=== PATIENT | female | born 1985 | race Caucasian/White ===

== ENCOUNTER 2017-06-08 18:01 | Emergency (ER) | payer OTHER, SELFPAY ==
[2017-06-08 18:03] VITALS: BP 132/68; PULSE 76; RESP 16; TEMP 36.3; O2SAT 99; BMI 29.7
--- NOTE | 2017-06-08 18:14 | ED.VISSUMM ---
- ER Visit Summary Date of Service: 06/08/17 Chief Complaint: Headache History of Present Illness: The patient is a 31 F presents to the emergency department with headache. Patient is a history of migraine. States normally, it is well controlled with Imitrex. Her headache started 4 days ago. She states it was gradual in onset. She describes a pressure on the left side. She does describe photophobia. She has tried her Imitrex with no improvement. She has been nauseated without vomiting. She denies trauma. She denies any recent illness. Physical Examination: Well-appearing patient is in no acute distress. Head is normocephalic, atraumatic. Pupils equal round reactive, extraocular muscles intact. There is no temporal artery tenderness. There is no vesicular rash. Neck supple. Kernig's and Brudzinski's are negative. Heart regular rate and rhythm. Lungs clear, chest nontender. Abdomen soft, nontender, nondistended. Neuro exam displays no focal or lateralizing deficit. 2+ symmetric lower extremity reflexes. No clonus. No ataxia or gait abnormality. Test Results: [] Emergency Department Course and Treatment: The patient presents with her normal migraine. She is not encephalopathic. She is not meningitic. She has a normal neurologic examination. The patient was treated symptomatically with IV fluids, Benadryl, Compazine, and Toradol. Within 30 minutes her headache is almost completely resolved. Her reexamination is within normal limits. At this time, I do feel the patient is safe for outpatient therapy. I will refill her Imitrex. She declined any antiemetics. She will be discharged home, return with any worsening symptoms. Treatment Plan: [] Disposition: Discharge Impression: 1. Migraine headache This note was generated with [employer] dictation software. It may contain incorrect words, spelling, and punctuation that were not noted in review of the chart prior to signing ED Disposition - Plan for ED Patient: Chief Complaint: Headache Instructions: ED Headache Migraine Prescriptions: Sumatriptan [Imitrex] 6 mg SC .X1 PRN PRN #10 vial PRN Reason: Migraine Symptoms Referrals: Alida Montgomery MD [Primary Care Provider] -
[2017-06-08] MEDS: 0.9% Normal Saline 1,000 ML 999 ML IV (18:19)
[2017-06-08] MEDS: DiphenhydrAMINE 50 MG/ML Syringe IV (18:20)
[2017-06-08] MEDS: proCHLORPERazine 10 MG/2 ML Vial IV (18:20)
[2017-06-08] MEDS: Ketorolac 30 MG/ML Syringe IV (18:20)
[2017-06-08 19:11] VITALS: BP 121/77; PULSE 68; RESP 14; O2SAT 100
== END 2017-06-08 19:12 | disposition home or self-care (01) ==
LOC: ED 18:30
PROVIDERS: Emergency Provider Emergency Medicine; Family Provider Internal Medicine; PCP Internal Medicine
DX: G43.909 Migraine, unspecified, not intractable, without status migrainosus (principal)
CPT/HCPCS: 96361; 96374; 96375; 99283; J7030; A4216

== ENCOUNTER 2024-08-17 09:33 | Emergency (ER) | payer OTHER, SELFPAY ==
[2024-08-17 09:34] VITALS: BP 148/62; PULSE 72; RESP 14; TEMP 36.3; O2SAT 98
--- NOTE | 2024-08-17 10:25 | ED.VIS.FEGU ---
HPI HPI - Female History of Present Illness Chief Complaint: Vag Bleeding Informant: patient Pain Pain: Positive for Pelvic Pain Onset: Days Context: Gradual Onset Timing: Intermittent Quality: Positive for Cramping Current Severity: Mild Maximum Severity: Mild Bleeding Issue: Positive for Vaginal bleeding and Passing clots Onset: Days Context: Gradual Onset Timing: Intermittent Current Severity: Heavy Associated Symptoms Associated Symptoms: Negative for Dysuria or Frequency P: 2 Ab: 0 Narrative Narrative: 38-year-old female history of an IUD for 2 and half years. Has been having intermittent heavy vaginal bleeding since Monday. Intermittent cramping. No discharge. No dysuria. Patient is G2, P2 Ab0. No prior gynecological surgery. Typically does not have bleeding anything like this. Had what she considers a normal menstrual period about 2 weeks ago. Blood mildly for 2 days. No fever. [facility] Medical History (Updated 08/17/24 @ 13:[address] Zaheer Ohara MD) Psoriasis Medical History no medical history no medical history Home Medications ?Medication ?Instructions ?Recorded ?Last Taken ?Type albuterol sulfate 90 mcg/actuation 2 puff inhalation Q4H PRN 08/17/24 Unknown History aerosol inhaler shortness of breath or wheezing apremilast 30 mg tablet (Otezla) 30 mg PO QHS 08/17/24 08/16/24 History Allergy/AdvReac Type Severity Reaction Status Date / Time amoxicillin Allergy Hives Verified 08/17/24 09:35 Family History no significant family his Surgical History no surgical history Social History Smoking Status: Never smoker ROS ROS ED ROS Narrative Denies recent illness. Vaginal bleeding. Pelvic cramping. Constitutional Constitutional ED: Denies chills or fever(s) Eyes Eyes: Denies blurry vision ENT ENT ED: Denies ear pain Cardiovascular Cardiovascular: Denies chest pain Respiratory/Chest Respiratory/Chest: Denies cough or dyspnea Gastrointestinal Gastrointestinal: Denies abdominal pain Genitourinary Genitourinary ED: Denies dysuria or hematuria Musculoskeletal Musculoskeletal: Denies arthralgias Integumentary Denies abscess Neurologic Neurologic: Denies headache(s) Psychiatric Psychiatric: Denies anxiety Endocrine Endocrinology: Denies heat intolerance Hematologic/Lymphatic Hematologic/Lymphatic: Denies easy bleeding, easy bruising or lymphadenopathy Allergic/Immunologic Allergic/Immunologic ED: Denies mouth swelling, tongue swelling or urticaria EXAM Physical Exam Narrative Exam Narrative: 38 Fama sitting upright in bed. Vital signs are stable afebrile. Blood pressure 148/62. Heart rate 72. No distress. H EENT exam pupils round reactive light. Extra motions are intact. Moist mucous membranes. Lungs clear to auscultation bilaterally. Heart regular rhythm rate about 70 no murmur. Chest wall and ribs nontender. Abdomen soft nondistended normal bowel sounds without peritoneal signs. Very mild suprapubic tenderness. Back nontender. Moving all 4 extremities. Nontender. No edema. Normal strength and range of motion. Neurologically awake and alert. Answer questions following commands. No focal motor deficits. Benign exam. Const Vital Signs: 08/17/24 09:34 08/17/24 11:34 08/17/24 12:59 Temperature 97.3 F L Temperature Source Temporal Pulse Rate 72 55 L 51 L Respiratory Rate 14 Blood Pressure 148/62 H 102/74 111/71 Blood Pressure Mean 90 83 84 Pulse Ox 98 93 100 Oxygen Delivery Method Room Air Room Air Room Air Positive well nourished and well developed; Negative for cachectic, contractures or unkempt General Appearance ED: well developed and NAD; Negative for unkempt, cachectic, contractures or pallor Nutritional Appearance: Negative for cachectic HEENT Reports moist mucous membranes Eyes PERRL and EOMs intact bilaterally General Eye ED: Negative for pale conjunctiva or scleral icterus Neck no lymphadenopathy, supple and no JVD Chest Wall inspection of chest normal and palpation of chest normal Resp normal respiratory effort and clear to auscultation bilaterally Auscultation: Negative for rales, rhonchi, wheezes or diminished lung sounds Cardio regular rate, regular rhythm, S1 normal heart sound, no murmurs and no JVD GI normal to inspection, nondistended, normoactive bowel sounds, soft to palpation, non-tender, non-distended and no masses Auscultation: normoactive bowel sounds Palpation: Negative for tender, guarding, rigid, hepatomegaly, splenomegaly or mass Back/Spine no CVA tenderness General Back: Negative for CVA tenderness Cervical Spine: Negative for cervical spine tenderness Thoracic Spine / Upper Back: Negative for thoracic spinal tenderness Lumbar Spine / Lower Back: Negative for lumbar spinal tenderness Sacrum: Negative for other Extremity normal to inspection and full ROM General Extremety ED: Negative for edema or tenderness General Extremity: Negative for edema Neuro oriented x3 and CN's II-XII intact bilaterally Sensorium / Orientation: alert, oriented to person, oriented to place and oriented to time; Negative for confused, lethargic or stuporous Motor Exam: strength 5/5 throughout; Negative for general weakness or strength abnormal Psych mental status grossly normal Appearance: Negative for unkempt Attitude: No agitated Speech: No other Mood & Affect: Negative for depressed, anxious or tearful Skin no rashes or lesions noted and no wounds General Skin Exam: Negative for jaundice or pallor Rashes: No rashes noted Trauma: Negative for other MDM MDM MDM Narrative Medical decision making narrative: 38-year-old female with heavy menstrual bleeding this week. Screening labs including test and a blood count. She did not want a thing for pain. She will be given a liter of normal saline to replace some of her volume loss. Repeat exam at 1:16 PM patient doing well. Went over her labs. She will be discharged home she has a follow-up appointment with her [facility] [facility] [facility] on Monday. Fluids and rest. Tylenol Motrin. Return if bleeding a lot worse otherwise follow-up with her OB. History & Record Review Discussion w/independent historian: Patient and Family Additional record(s) reviewed:: Prior inpatient record, Prior outpatient record, Prior ED visit and Prior labs Lab Data Attestation: I reviewed the patient's lab results. Lab results narrative: Electrolytes are unremarkable. Gap of 12. Normal BUN of 12 creatinine 0.67. Serum test negative. CBC shows a white count of 7. H&H 13.9 and 40.4 which actually better than her normal hemoglobin. Platelets of 301. Labs: Laboratory Results - last 24 hr 08/17/24 11:15 WBC 7.9 RBC 4.76 Hgb 13.9 Hct 40.4 MCV 84.9 MCH 29.2 MCHC 34.4 RDW Std Deviation 36.9 RDW Coeff of Manas 12.1 Plt Count 301 MPV 9.4 Immature Gran % (Auto) 0.400 Neut % (Auto) 55.2 Lymph % (Auto) 36.8 Pepin % (Auto) 6.1 Eos % (Auto) 1.0 Baso % (Auto) 0.5 Absolute Neuts (auto) 4.4 Absolute Lymphs (auto) 2.90 Nucleated RBC % 0 Sodium 138 Potassium 3.9 Chloride 107 Carbon Dioxide 18.2 L Anion Gap 12 BUN 12 Creatinine 0.67 L Est GFR (MDRD) Non-Af 114 BUN/Creatinine Ratio 18.0 Glucose 96 Calcium 9.0 Serum , Qual NEGATIVE Discharge Plan Triage Chief Complaint: Vag Bleeding ED Provider: Zaheer Ohara Dx/Rx/DC Orders Clinical Impression: Abnormal vaginal bleeding, History of use of contraceptive intrauterine device (IUD) Instructions: ED Dysfunctional Uterine Bleeding Prescriptions: No Action Otezla 30 mg tablet 30 mg PO QHS albuterol sulfate 90 mcg/actuation HFA aerosol inhaler 2 puff INHALATION Q4H PRN (Reason: shortness of breath or wheezing) Primary Care Provider: Alida Montgomery Referrals: Alida Montgomery MD [Primary Care Provider] - Activity Restrictions/Additional Instructions: Follow-up with your [employer] appointment on Monday. Plenty of fluids to replace the blood you are losing. Motrin and Tylenol for pain. Return if much heavier bleeding or you are feeling worse. Currently your blood counts look good. Print Language: Estonian Disposition Disposition: Home, Self Care
--- OUTSIDE RECORDS SUMMARY | 2024-08-17 10:45 | XMS RPT_ITS | CCD ---
Author Organization [facility] CliniSymn Care Team Providers Care Golf Caddie Name Role Phone Ulises, Ana Maria Unavailable Unavailable Bhaskar Pastor Unavailable Unavailable GANTA, ANA MARIA LORENA Referring Unavailable KARENARTUR Primary Care Unavailable KARENARTUR Attending Unavailable KAREN, ARTUR Benz Admitting Unavailable GANTA, ANA MARIA LORENA Consulting Unavailable PROVIDER, UNKNOWN Consulting Unavailable KAREN, ARTUR Benz Admitting Unavailable KAREN, ARTUR Benz Primary Care Unavailable KAREN, ARTUR Benz Attending Unavailable GANTA, ANA MARIA LORENA Consulting Unavailable PROVIDER, UNKNOWN Consulting Unavailable KAREN, ARTUR Benz Primary Care Unavailable KARENARTUR Attending Unavailable KAREN, ARTUR Demar Admitting Unavailable GANTA, ANA MARIA LORENA Consulting Unavailable PROVIDER, UNKNOWN Consulting Unavailable Ana Maria Marrero MD Primary Care Provider Ana Maria Marrero MD Primary Care Provider Ana Maria Marrero MD Primary Care Provider Ana Maria Marrero MD Primary Care Provider Marii OPWELL-C Miriam L Unavailable Older CONTROL MANAGER.CLINICAL BIOCHEMICAL GENETICIST, Mandi Unavailable Ihsan PA-C, Kera Unavailable Denbow PA-C, Miriam L Unavailable Bogmichelle PA-C Kera Unavailable GANTA, ANA MARIA Primary Care Unavailable OLDER, MANDI Attending Unavailable GANTA, ANA MARIA Primary Care Unavailable GANTA, ANA MARIA Primary Care Unavailable HILL, MARY ANN Referring Unavailable GANTA, ANA MARIA Primary Care Unavailable HILL, MARY ANN Attending Unavailable GANTA, ANA MARIA Primary Care Unavailable ESTRADA BALLARD Referring Unavailable HILL, MARY ANN Attending Unavailable GANTA, ANA MARIA Primary Care Unavailable ANA MARIA MARRERO Primary Care Unavailable ANA MARIA MARRERO Primary Care Unavailable ESTRADA BALLARD Attending Unavailable Allergies Allergy Classification Reported Allergen(s) Allergy Type Date of Onset Reaction(s) Facility (2 sources) amoxicillin; Translations: [AMOXICILLIN] Drug Allergy 5 AOF [facility] Repository (1 source) Amoxicillin Drug Allergy [facility] Repository (20 sources) Amoxicillin Drug Allergy 5 Hives, Swelling [facility] Work Phone: (20 sources) benzonatate; Translations: [BENZONATATE] Drug Allergy 5 Vomiting [facility] Work Phone: Medications Current Medications Medication Drug Class(es) Dates Sig (Normalized) Sig (Original) [id number] 200 actuat albuterol 0.09 mg/actuat metered dose inhaler (11 sources) beta2-Adrenergic Agonist Start: 04-22-2024 take 2 puff(s) by inhalation every four hours as needed for wheezing albuterol HFA (PROVENTIL HFA, VENTOLIN HFA) 90 mcg/actuation inhaler Inhale 2 Puffs as instructed every 4 hours as needed for wheezing/shortnes s of breath. 18 g 04/22/2024 Active Start: 05-15-2019 End: 05-06-2022 take 2 puff(s) by inhalation every six hours as needed albuterol HFA (PROAIR HFA) 90 mcg/actuation inhaler Inhale 2 Puffs as instructed every 6 hours as needed. 1 Inhaler 0 05/15/2019 05/06/2022 Discontinued Comment on above: Inhale 2 Puffs as in structed every 6 hours as needed. apremilast 30 mg oral tablet (11 sources) Start: 4 take 1 tablet by mouth twice daily OTEZLA 30 mg tablet Take 30 mg by mouth two times a day. 10/20/2023 Active benzonatate 100 mg oral capsule (8 sources) Non-narcotic Antitussive Start: 5 take 2 capsules by mouth every eight hours as needed benzonatate (TESSALON PERLE) 100 mg capsule Take 2 capsules by mouth three times a day as needed. 30 capsule 04/22/2024 Active Start: 03-08-2024 End: 04-17-2024 take 1 capsule by mouth every eight hours as needed benzonatate (TESSALON PERLE) 100 mg capsule Take 1 capsule by mouth three times a day as needed. 15 capsule 03/08/2024 04/17/2024 Discontinued doxycycline hyclate 100 mg oral capsule (2 sources) Tetracycline-class Drug Start: 03-08-2024 End: 03-18-2024 take 1 capsule by mouth twice daily doxycycline hyclate (VIBRAMYCIN) 100 mg capsule Take 1 capsule (100 mg) by mouth two times a day for 10 days. 20 capsule 03/08/2024 03/18/2024 Active Start: 12-09-2022 End: 12-16-2022 take 1 tablet by mouth twice daily doxycycline (VIBRA-TABS) 100 mg tablet Indications: Sinobronchitis Take 1 tablet by mouth two times a day for 7 days. 14 tablet 0 12/09/2022 12/16/2022 Active Comment on above: Take 1 tablet by chalino two times a day for 7 days. levonorgestrel 0.130492 mg/hr intrauterine system (20 sources) Progestin, Progestin-containing Intrauterine Device Start: 023 End: levonorgestrel (MIRENA) 20 mcg/24 hours (8 yrs) 52 mg IUD 1 Each by INTRAUTERINE route as directed. 1 Each 03/28/2022 03/27/2027 Active Comment on above: 1 Each by INTRAUTERI NE route as directed. Magnesium (4 sources) take 350 mg by mouth once daily MAGNESIUM ORAL Take 350 mg by mouth once daily. Active Multivitamin capsule (16 sources) take 1 capsule by mouth once daily Multivitamin capsule Take 1 capsule by mouth once daily. Migraine 0 Active Comment on above: Take 1 capsule by mo [facility] once daily. Migraine MULTIVITAMIN ORAL (11 sources) take 1 capsule by mouth once daily MULTIVITAMIN ORAL Take 1 capsule by mouth once daily. powder Active oseltamivir 75 mg oral capsule (1 source) Neuraminidase Inhibitor Start: 024 End: 024 take 1 capsule by mouth twice daily oseltamivir (TAMIFLU) 75 mg capsule Take 1 capsule by mouth two times a day for 5 days. 10 capsule 02/27/2024 03/03/2024 Active predniSONE 20 mg oral tablet (4 sources) Start: End: take 2 tablets by mouth once daily predniSONE (DELTASONE) 20 mg tablet Take 2 tablets by mouth once daily for 5 days. 10 tablet 04/22/2024 04/27/2024 Active Start: 03-08-2024 End: 04-17-2024 take 1 tablet by mouth once daily predniSONE (DELTASONE) 20 mg tablet Take 1 tablet by mouth once daily. 5 tablet 03/08/2024 04/17/2024 Discontinued Start: 12-09-2022 End: 12-14-2022 take 2 tablets by mouth once daily predniSONE (DELTASONE) 20 mg tablet Indications: Sinobronchitis Take 2 tablets by mouth once daily for 5 days. 10 tablet 0 12/09/2022 12/14/2022 Active Comment on above: Take 2 tablets by [facility] once daily for 5 days. 0.5 ml SUMAtriptan 12 mg/ml cartridge (20 sources) Serotonin-1b and Serotonin-1d Receptor Agonist Start: 01-01-20 End: 06-29-19 SUMAtriptan (IMITREX) 6 mg/0.5 mL kit Indications: Intractable headache, unspecified chronicity pattern, unspecified headache type Inject 0.5 mL subcutaneously as needed. 6 Each 06/28/2022 Active Comment on above: Inject 0.5 mL subcut aneously as needed. valACYclovir 1000 mg oral tablet (1 source) Herpesvirus Nucleoside Analog DNA Polymerase Inhibitor, Herpes Simplex Virus Nucleoside Analog DNA Polymerase Inhibitor, Herpes Zoster Virus Nucleoside Analog DNA Polymerase Inhibitor Start: 09-23-19 End: 09-30-19 take 1 tablet by mouth three times daily valACYclovir (VALTREX) 1 gram Indications: Herpes zoster with complication Take 1 tablet by mouth three times daily for 7 days. 21 tablet 0 09/22/2022 09/29/2022 Active Comment on above: Take 1 tablet by [facility] three times daily for 7 days. vitamin A/vitamin D3 (NATURAL VITAMIN D ORAL) (4 sources) vitamin A/vitami n D3 (NATURAL VITAMIN D ORAL) Take by mouth. Vitmain D Active zinc sulfate 220 mg oral capsule (11 sources) Start: 10-20-19 take 1 capsule by mouth once daily zinc sulfate (ZINC-220) 220 mg (50 mg zinc) capsule Take 220 mg by mouth once daily. 10/20/2023 Active Completed/Discontinued Medications Medication Drug Class(es) Dates Sig (Normalized) Sig (Original) azithromycin 250 mg oral tablet (2 sources) Macrolide Antimicrobial Start: 12-05-2022 End: 12-09-2022 azithromycin (ZITHROMAX Z-LENARD) 250 mg tablet Indications: Acute non-recurrent sinusitis, unspecified location , Left otitis media, unspecified otitis media type Take 2 tablets day one, then, 1 tablet daily until gone. 6 tablet 0 12/05/2022 12/09/2022 Discontinued Comment on above: Take 2 tablets day o ne, then, 1 tablet daily until gone. topiramate 25 mg oral tablet (13 sources) Start: 06-28-2022 End: 01-23-2024 take 1 tablet by mouth twice daily, then take 2 tablets by mouth once daily topiramate (TOPAMAX) 25 mg tablet Indications: Chronic migraine without aura, with intractable migraine, so stated, with status migrainosus Take 1 tablet by mouth twice daily. For a couple weeks, followed by 2 pills every day 60 tablet 2 06/28/2022 01/23/2024 Discontinued Comment on above: Take 1 tablet by chalino th twice daily. For a couple weeks, followed by 2 pills every day Problems Active Problems Problem Classification Problem Date Documented Date Episodic/Chronic Blindness and vision defects (1 source) Eye / vision finding; Translations: [Unspecified visual disturbance] Episodic Contraceptive and procreative management (1 source) Intrauterine contraceptive device in situ; Translations: [Encounter for routine checking of intrauterine contraceptive device] Episodic Disorders of lipid metabolism (14 sources) Dyslipidemia; Translations: [Hyperlipidemia, unspecified] Onset: 01-23-2024 01-23-2024 Chronic Esophageal disorders (20 sources) Gastroesophageal reflux disease; Translations: [Gastro-esophageal reflux disease without esophagitis] Onset: 08-06-2014 08-06-2014 Chronic Headache; including migraine (20 sources) Migraine without aura; Translations: [Migraine without aura, not intractable, without status migrainosus] Onset: 05-20-2014 05-20-2014 Chronic Headache; including migraine (1 source) Headache; including migraine; Translations: [Headache, unspecified] Onset: 02-25-2020 Influenza (1 source) Influenza due to Influenza A virus; Translations: [Influenza due to other identified influenza virus with other respiratory manifestations] 02-27-2024 Episodic Malaise and fatigue (1 source) Other fatigue; Translations: [Other fatigue] Onset: 02-25-2020 Episodic Menopausal disorders (20 sources) Menorrhagia; Translations: [Excessive bleeding in the premenopausal period] Onset: 06-07-2021 06-07-2021 Chronic Mood disorders (20 sources) Depressive disorder; Translations: [Depression] Onset: 01-21-2005 Resolved: 01-13-2012 11-16-2015 Chronic Other ear and sense organ disorders (1 source) Otalgia, right ear; Translations: [Otalgia, unspecified] 02-27-2024 Episodic Other female genital disorders (20 sources) Abnormal uterine bleeding; Translations: [Other specified abnormal uterine and vaginal bleeding] Onset: 06-07-2021 06-07-2021 Chronic Other female genital disorders (1 source) Vaginal discharge; Translations: [Other specified noninflammatory disorders of vagina] 04-17-2024 Episodic Other lower respiratory disease (3 sources) Cough; Translations: [Cough] Onset: 02-25-2020 Episodic Other lower respiratory disease (1 source) Wheezing; Translations: [Wheezing] 04-22-2024 Episodic Other nutritional; endocrine; and metabolic disorders (13 sources) Severe obesity; Translations: [Class 2 severe obesity with serious comorbidity and body mass index (BMI) of 36.0 to 36.9 in adult, unspecified obesity type (HCC)] Onset: 01-23-2024 01-23-2024 Chronic Other nutritional; endocrine; and metabolic disorders (1 source) Body mass index (BMI) 36.0-36.9, adult; Translations: [Class 2 severe obesity with serious comorbidity and body mass index (BMI) of 36.0 to 36.9 in adult, unspecified obesity type (HCC)] Onset: 01-23-2024 Chronic Other nutritional; endocrine; and metabolic disorders (1 source) Morbid (severe) obesity due to excess calories; Translations: [Class 2 severe obesity with serious comorbidity and body mass index (BMI) of 36.0 to 36.9 in adult, unspecified obesity type (HCC)] Onset: 01-23-2024 Chronic Other upper respiratory infections (3 sources) Chronic sinusitis; Translations: [Chronic sinusitis, unspecified] Onset: 03-08-2024 12-09-2022 Chronic Other upper respiratory infections (2 sources) Upper respiratory infection; Translations: [Acute upper respiratory infection, unspecified] 02-27-2024 Episodic Residual codes; unclassified (1 source) Viral syndrome; Translations: [Other general symptoms and signs] 02-27-2024 Episodic Unclassified (1 source) Class 2 severe obesity with serious comorbidity and body mass index (BMI) of 36.0 to 36.9 in adult, unspecified obesity type (HCC); Translations: [Class 2 severe obesity with serious comorbidity and body mass index (BMI) of 36.0 to 36.9 in adult, unspecified obesity type (HCC)] Onset: 01-23-2024 Viral infection (1 source) Herpes zoster with complication; Translations: [Zoster with other complications] 09-22-2022 Episodic Past or Other Problems Problem Classification Problem Date Documented Date Episodic/Chronic Chronic obstructive pulmonary disease and bronchiectasis (1 source) Bronchitis, not specified as acute or chronic; Translations: [Sinobronchitis] Onset: 03-08-2024 Episodic Diabetes mellitus without complication (2 sources) Impaired fasting glycemia; Translations: [Impaired fasting glucose] Onset: 01-23-2024 05-21-2024 Episodic Headache; including migraine (17 sources) Headache; Translations: [Intractable headache, unspecified chronicity pattern, unspecified headache type] Onset: 05-07-2014 Resolved: 05-12-2016 Episodic Immunizations and screening for infectious disease (20 sources) Encounter for observation for suspected exposure to other biological agents ruled out; Translations: [Patient encounter status] Onset: 06-19-2008 Resolved: 01-13-2012 Episodic Nausea and vomiting (2 sources) Nausea with vomiting, unspecified; Translations: [Nausea with vomiting, unspecified] Onset: 11-08-2019 Episodic Other female genital disorders (16 sources) Cyst of vagina; Translations: [Other specified noninflammatory disorders of vagina] Onset: 04-30-2009 Resolved: 01-13-2012 01-13-2012 Episodic Other nervous system disorders (16 sources) Skin sensation disturbance; Translations: [Unspecified disturbances of skin sensation] Onset: 05-25-2005 Resolved: 01-13-2012 01-13-2012 Episodic Other and delivery including normal (20 sources) Normal in primigravida; Translations: [Encounter for supervision of normal first , unspecified trimester] Onset: 12-28-2009 Resolved: 09-25-2012 01-13-2012 Episodic Other screening for suspected conditions (not mental disorders or infectious disease) (18 sources) Patient encounter status; Translations: [Encounter for screening mammogram for malignant neoplasm of breast] Onset: 01-31-2024 Episodic Residual codes; unclassified (12 sources) Family history of breast cancer; Translations: [Family history of malignant neoplasm of breast] Onset: 04-17-2024 Episodic Residual codes; unclassified (12 sources) Family history of diabetes mellitus in first degree relative; Translations: [Family history of diabetes mellitus] Onset: 01-23-2024 01-23-2024 Episodic Residual codes; unclassified (9 sources) Other specified personal risk factors, not elsewhere classified; Translations: [Other specified conditions influencing health status] Onset: 04-17-2024 04-17-2024 Episodic Residual codes; unclassified (1 source) Family history of diabetes mellitus; Translations: [Family history of diabetes mellitus in first degree relative] Onset: 01-23-2024 Episodic Spondylosis; intervertebral disc disorders; other back problems (16 sources) Low back pain; Translations: [Lumbago] Onset: 01-21-2005 Resolved: 01-13-2012 01-13-2012 Episodic Thyroid disorders (16 sources) Goiter; Translations: [Nontoxic goiter, unspecified] Onset: 01-15-2008 Resolved: 01-13-2012 01-13-2012 Chronic Unclassified (2 sources) Patient encounter status 04-17-2024 Results Test Name Value Interpretation Reference Range Facility DBT Breast - bilateral navdeepe caesar 07-15-2024 IMPRESSION: There is no mammographic evidence of malignancy in either breast. Routine screening mammogram is recommended. Annual mammogram will be due in 1 year. BI-RADS Category 1: Negative RISK: Based on the Tyrer-Cuzick (TC) risk assessment model, this patient has a 25.0% lifetime risk of developing breast cancer, meaning they are at high risk for developing breast cancer. However, this is only an estimate based on available history provided on the patient's questionnaire. Because patients with a lifetime risk of 20% or greater may benefit from additional supplemental screening, we encourage a full breast clinical evaluation and comprehensive breast cancer risk assessment to guide further decision making. For more information regarding the management of high-risk patients, the following is a link to the [facility] care path [email or web address]://ccf.[employer]dotNet/document s/?bwxec=84578. Additionally, a referral to the [facility] is also appropriate. Interpreting Radiologist: Yane Vital M.D. Electronically signed on: 07/15/2024 Senior Php Web Developer: HANG Transcribe Date/Time: Jul 15 2024 7:28A Dictated by: YANE VITAL MD This examination was interpreted and the report reviewed and electronically signed by: YANE VITAL MD on Jul 15 2024 8:59AM [facility] DIVISION OF RADIOLOGY * * *Final Report* * * DATE OF EXAM: Jul 15 2024 7:36AM [facility] [id number] - RODY SCREENING W ZAC / PROCEDURE REASON: Encounter for gynecological examination (general) (routine) without abnormal fin * * * * Physician Interpretation * * * * RESULT: [place] [address] #[id number] - RODY SCREENING W ZAC HISTORY: 38 year-old patient seen for screening. Patient is asymptomatic in both breasts. Patient states no personal history of breast cancer. The patient has a family history of breast cancer. COMPARISON STUDIES: The present examination has been compared to prior imaging studies dated 06/29/2020 (mammogram), 07/14/2020 (mammogram), 07/14/2020 (ultrasound), 06/30/2021 (mammogram), 07/12/2022 (mammogram) and 07/14/2023 (mammogram). MAMMOGRAM TECHNIQUE: The study was acquired using full field digital technology and interpreted from soft copy. Digital Breast Tomosynthesis (DBT) images were obtained and used to assist in the interpretation of this examination. MAMMOGRAM FINDINGS: There are scattered areas of fibroglandular density. No suspicious masses, calcifications or other abnormalities are seen in either breast. There are no significant interval changes. DIVISION OF RADIOLOGY Provider, [facility] Imagin [facility] - 07/15/2024 * * *Final Report* * * DATE OF EXAM: Jul 15 2024 7:36AM [id number] - RODY SCREENING W ZAC / PROCEDURE REASON: Encounter for gynecological examination (general) (routine) without abnormal fin * * * * Physician Interpretation * * * * RESULT: [address] [address] [place] [address] #[id number] - RODY SCREENING W ZAC HISTORY: 38 year-old patient seen for screening. Patient is asymptomatic in both breasts. Patient states no personal history of breast cancer. The patient has a family history of breast cancer. COMPARISON STUDIES: The present examination has been compared to prior imaging studies dated 06/29/2020 (mammogram), 07/14/2020 (mammogram), 07/14/2020 (ultrasound), 06/30/2021 (mammogram), 07/12/2022 (mammogram) and 07/14/2023 (mammogram). MAMMOGRAM TECHNIQUE: The study was acquired using full field digital technology and interpreted from soft copy. Digital Breast Tomosynthesis (DBT) images were obtained and used to assist in the interpretation of this examination. MAMMOGRAM FINDINGS: There are scattered areas of fibroglandular density. No suspicious masses, calcifications or other abnormalities are seen in either breast. There are no significant interval changes. IMPRESSION IMPRESSION: There is no mammographic evidence of malignancy in either breast. Routine screening mammogram is recommended. Annual mammogram will be due in 1 year. BI-RADS Category 1: Negative RISK: Based on the Tyrer-Cuzick (TC) risk assessment model, this patient has a 25.0% lifetime risk of developing breast cancer, meaning they are at high risk for developing breast cancer. However, this is only an estimate based on available history provided on the patient's questionnaire. Because patients with a lifetime risk of 20% or greater may benefit from additional supplemental screening, we encourage a full breast clinical evaluation and comprehensive breast cancer risk assessment to guide further decision making. For more information regarding the management of high-risk patients, the following is a link to the [facility] care path [email or web address]/dotNet/document [email or web address]. Additionally, a referral to the [facility] Medical Breast Clinic is also appropriate. Interpreting Radiologist: Yane Vital M.D. Electronically signed on: 07/15/2024 Senior Php Web Developer: HANG Transcritamir Date/Time: Jul 15 2024 7:28A Dictated by: YANE VITAL MD This examination was interpreted and the report reviewed and electronically signed by: YANE VITAL MD on Jul 15 2024 8:59AM EST [facility] Radiology Study observation (narrative) [facility] DBT Breast - bilateral scree ningOrdered By: [facility] Provider on 07-15-2024 [facility] RODY SCREENING W TOMOon 07-15 RODY SCREENING W ZAC * * *Final Report* * * DATE OF EXAM: Jul 15 2024 7:36AM [id number] - RODY SCREENING W ZAC / PROCEDURE REASON: Encounter for gynecological examination (general) (routine) without abnormal fin * * * * Physician Interpretation * * * * RESULT: [facility] [place] [address] #[id number] - ORDY SCREENING W ZAC HISTORY: 38 year-old patient seen for screening. Patient is asymptomatic in both breasts. Patient states no personal history of breast cancer. The patient has a family history of breast cancer. COMPARISON STUDIES: The present examination has been compared to prior imaging studies dated 06/29/2020 (mammogram), 07/14/2020 (mammogram), 07/14/2020 (ultrasound), 06/30/2021 (mammogram), 07/12/2022 (mammogram) and 07/14/2023 (mammogram). MAMMOGRAM TECHNIQUE: The study was acquired using full field digital technology and interpreted from soft copy. Digital Breast Tomosynthesis (DBT) images were obtained and used to assist in the interpretation of this examination. MAMMOGRAM FINDINGS: There are scattered areas of fibroglandular density. No suspicious masses, calcifications or other abnormalities are seen in either breast. There are no significant interval changes. IMPRESSION: There is no mammographic evidence of malignancy in either breast. Routine screening mammogram is recommended. Annual mammogram will be due in 1 year. BI-RADS Category 1: Negative RISK: Based on the Tyrer-Cuzick (TC) risk assessment model, this patient has a 25.0% lifetime risk of developing breast cancer, meaning they are at high risk for developing breast cancer. However, this is only an estimate based on available history provided on the patient's questionnaire. Because patients with a lifetime risk of 20% or greater may benefit from additional supplemental screening, we encourage a full breast clinical evaluation and comprehensive breast cancer risk assessment to guide further decision making. For more information regarding the management of high-risk patients, the following is a link to the [facility] care path [email or web address]/document [email or web address]. Additionally, a referral to the [facility] Medical Breast Clinic is also appropriate. Interpreting Radiologist: Yane Vital M.D. Electronically signed on: 07/15/2024 Senior Php Web Developer: HANG Transcribe Date/Time: Jul 15 2024 7:28A Dictated by: YANE VITAL MD This examination was interpreted and the report reviewed and electronically signed by: YANE VITAL MD on Jul 15 2024 8:59AM EST [id number] Normal [facility] CNOVon 05-22-2024 CNOV Office Visit (OBGYWM ) VERONICA DOVER ([id number]) 1985 F Date Time Provider Department 05/22/24 7:30 AM [facility] During your visit today, we recorded the following information about you: Pulse Blood pressure Weight 85/minute 120/64 95.7 kg Mary Ann Hill APRN.CNP 05/22/2024 7:34 PM Signed Some documentation from previous visit of 01/23/2024 was copied and pasted, documentation has been reviewed and edited as necessary for today's visit. Patient Summary: Veronica is a 38 year old Female who presents for follow-up evaluation of obesity/weight management to treat and prevent related co-morbidities. In our previous visits we have discussed lifestyle intervention including a nutrition recommendations and physical activity optimization. Her last office visit was 4 months ago. Assessment/plan from last visit: - behavioral intervention - [facility] 103 Family hx DM Interval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 [Ratio] 35.16 kg/m2 Angeles Ho APRN.CLINICAL BIOCHEMICAL GENETICIST Work Phone: [facility] 04-22-2024 12:27-0500 Body temperature 98.8 [degF] Angeles Ho APRN.CLINICAL BIOCHEMICAL GENETICIST Work Phone: [facility] 04-22-2024 12:27-0500 Body weight 96.2 kg Angeles Ho APRN.CLINICAL BIOCHEMICAL GENETICIST Work Phone: [facility] 04-22-2024 12:27-0500 Diastolic blood pressure 84 mm[Hg] Angeles Ho APRN.CLINICAL BIOCHEMICAL GENETICIST Work Phone: [facility] 04-22-2024 12:27-0500 Heart rate 86 /min Angeles Ho APRN.CLINICAL BIOCHEMICAL GENETICIST Work Phone: [facility] 04-22-2024 12:27-0500 Respiratory rate 16 /min Angeles Ho APRN.CLINICAL BIOCHEMICAL GENETICIST Work Phone: [facility] 04-22-2024 12:27-0500 SaO2% (BldA) [Mass fraction] 98 % Angeles Ho APRN.CLINICAL BIOCHEMICAL GENETICIST Work Phone: [facility] 04-22-2024 12:27-0500 Systolic blood pressure 132 mm[Hg] Angeles Ho APRN.CLINICAL BIOCHEMICAL GENETICIST Work Phone: [facility] 04-17-2024 07:13-0500 Body height 165.4 cm Estrada Ballard APRN.CLINICAL BIOCHEMICAL GENETICIST Work Phone: [facility] 04-17-2024 07:13-0500 Body mass index (BMI) [Ratio] 34.85 kg/m2 Estrada Haury CONTROL MANAGER.CLINICAL BIOCHEMICAL GENETICIST Work Phone: [facility] 04-17-2024 07:13-0500 Body weight 95.35 kg Estrada Ballard CONTROL MANAGER.CLINICAL BIOCHEMICAL GENETICIST Work Phone: [facility] 04-17-2024 07:13-0500 Diastolic blood pressure 66 mm[Hg] Estrada Ballard CONTROL MANAGER.CLINICAL BIOCHEMICAL GENETICIST Work Phone: [facility] 04-17-2024 07:13-0500 Systolic blood pressure 118 mm[Hg] Estrada Ballard CONTROL MANAGER.CLINICAL BIOCHEMICAL GENETICIST Work Phone: [facility] 03-08-2024 13:30-0500 Body mass index (BMI) [Ratio] 35.61 kg/m2 Mandi Older CONTROL MANAGER.CLINICAL BIOCHEMICAL GENETICIST Work Phone: [facility] 03-08-2024 13:30-0500 Body temperature 97.3 [degF] Mandi Older CONTROL MANAGER.CLINICAL BIOCHEMICAL GENETICIST Work Phone: [facility] 03-08-2024 13:30-0500 Body weight 97.07 kg Mandi Older CONTROL MANAGER.CLINICAL BIOCHEMICAL GENETICIST Work Phone: [facility] 03-08-2024 13:30-0500 Diastolic blood pressure 70 mm[Hg] Mandi Older CONTROL MANAGER.CLINICAL BIOCHEMICAL GENETICIST Work Phone: [facility] 03-08-2024 13:30-0500 Heart rate 73 /min Mandi Older CONTROL MANAGER.CLINICAL BIOCHEMICAL GENETICIST Work Phone: [facility] 03-08-2024 13:30-0500 Respiratory rate 16 /min Mandi Older CONTROL MANAGER.CLINICAL BIOCHEMICAL GENETICIST Work Phone: [facility] 03-08-2024 13:30-0500 SaO2% (BldA) [Mass fraction] 98 % Mandi Older CONTROL MANAGER.CLINICAL BIOCHEMICAL GENETICIST Work Phone: [facility] 03-08-2024 13:30-0500 Systolic blood pressure 122 mm[Hg] Mandi Older CONTROL MANAGER.CLINICAL BIOCHEMICAL GENETICIST Work Phone: [facility] 02-27-2024 14:26-0500 Body mass index (BMI) [Ratio] 35.22 kg/m2 Angeles Ho APRN.CLINICAL BIOCHEMICAL GENETICIST Work Phone: [facility] 02-27-2024 14:26-0500 Body temperature 100.99 [degF] Angeles Ho APRN.CLINICAL BIOCHEMICAL GENETICIST Work Phone: [facility] 02-27-2024 14:26-0500 Body weight 96 kg Angeles Ho APRN.CLINICAL BIOCHEMICAL GENETICIST Work Phone: [facility] 02-27-2024 14:26-0500 Diastolic blood pressure 84 mm[Hg] Angeles Ho APRN.CLINICAL BIOCHEMICAL GENETICIST Work Phone: [facility] 02-27-2024 14:26-0500 Heart rate 102 /min Angeles Ho APRN.CLINICAL BIOCHEMICAL GENETICIST Work Phone: [facility] 02-27-2024 14:26-0500 Respiratory rate 20 /min Angeles Ho APRN.CLINICAL BIOCHEMICAL GENETICIST Work Phone: [facility] 02-27-2024 14:26-0500 SaO2% (BldA) [Mass fraction] 98 % Angeles Ho APRN.CLINICAL BIOCHEMICAL GENETICIST Work Phone: [facility] 02-27-2024 14:26-0500 Systolic blood pressure 127 mm[Hg] Angeles Ho APRN.CLINICAL BIOCHEMICAL GENETICIST Work Phone: [facility] 01-23-2024 07:48-0500 Body height 165.1 cm Mary Ann Hill APRN.CLINICAL BIOCHEMICAL GENETICIST Work Phone: [facility] 01-23-2024 07:48-0500 Body mass index (BMI) [Ratio] 36.44 kg/m2 Mary Ann Hill APRN.CLINICAL BIOCHEMICAL GENETICIST Work Phone: [facility] 01-23-2024 07:48-0500 Body weight 99.34 kg Mary Ann Hill APRN.CLINICAL BIOCHEMICAL GENETICIST Work Phone: [facility] 01-23-2024 07:48-0500 Diastolic blood pressure 78 mm[Hg] Mary Ann Hill APRN.CLINICAL BIOCHEMICAL GENETICIST Work Phone: [facility] 01-23-2024 07:48-0500 Heart rate 68 /min Mary Ann Hill APRN.CLINICAL BIOCHEMICAL GENETICIST Work Phone: [facility] 01-23-2024 07:48-0500 SaO2% (BldA) [Mass fraction] 98 % Mary Ann Hill APRN.CLINICAL BIOCHEMICAL GENETICIST Work Phone: [facility] 01-23-2024 07:48-0500 Systolic blood pressure 122 mm[Hg] Mary Ann Hill APRN.CLINICAL BIOCHEMICAL GENETICIST Work Phone: [facility] 12-09-2022 17:30-0400 Body temperature 98.2 [degF] Miriam Denbow PA-C Work Phone: [facility] 12-09-2022 17:30-0400 Body weight 92.9 kg Miriam Denbow PA-C Work Phone: [facility] 12-09-2022 17:30-0400 Diastolic blood pressure 89 mm[Hg] Miriam Denbow PA-C Work Phone: [facility] 12-09-2022 17:30-0400 Heart rate 78 /min Miriam Denbow PA-C Work Phone: [facility] 12-09-2022 17:30-0400 Respiratory rate 18 /min Miriam Denbow PA-C Work Phone: [facility] 12-09-2022 17:30-0400 SaO2% (BldA) [Mass fraction] 98 % Miriam Denbow PA-C Work Phone: [facility] 12-09-2022 17:30-0400 Systolic blood pressure 125 mm[Hg] Miriam Denbow PA-C Work Phone: [facility] 09-22-2022 10:05-0400 Body temperature 98.49 [degF] Yuriy Ellsworth APRN.CLINICAL BIOCHEMICAL GENETICIST Work Phone: [facility] 09-22-2022 10:05-0400 Body weight 92.53 kg Yuriy Ellsworth APRN.CLINICAL BIOCHEMICAL GENETICIST Work Phone: [facility] 09-22-2022 10:05-0400 Diastolic blood pressure 70 mm[Hg] Yuriy Ellsworth APRN.CLINICAL BIOCHEMICAL GENETICIST Work Phone: [facility] 09-22-2022 10:05-0400 Heart rate 66 /min Yuriy Ellsworth APRN.CLINICAL BIOCHEMICAL GENETICIST Work Phone: [facility] 09-22-2022 10:05-0400 Respiratory rate 16 /min Yuriy Ellsworth CONTROL MANAGER.CLINICAL BIOCHEMICAL GENETICIST Work Phone: [facility] 09-22-2022 10:05-0400 SaO2% (BldA) [Mass fraction] 99 % Yuriy Ellsworth CONTROL MANAGER.CLINICAL BIOCHEMICAL GENETICIST Work Phone: [facility] 09-22-2022 10:05-0400 Systolic blood pressure 122 mm[Hg] Yuriy Ellsworth APRN.CLINICAL BIOCHEMICAL GENETICIST Work Phone: [facility] 06-28-2022 07:51-0400 Body height 162.6 cm Ana Maria Marrero MD Work Phone: [facility] 06-28-2022 07:51-0400 Body temperature 98.29 [degF] Ana Maria Marrero MD Work Phone: [facility] 06-28-2022 07:51-0400 Body weight 89.81 kg Ana Maria Marrero MD Work Phone: [facility] 06-28-2022 07:51-0400 Diastolic blood pressure 62 mm[Hg] Ana Maria Marrero MD Work Phone: [facility] 06-28-2022 07:51-0400 Heart rate 69 /min Ana Maria Marrero MD Work Phone: [facility] 06-28-2022 07:51-0400 Respiratory rate 12 /min Ana Maria Marrero MD Work Phone: [facility] 06-28-2022 07:51-0400 SaO2% (BldA) [Mass fraction] 98 % Ana Maria Marrero MD Work Phone: [facility] 06-28-2022 07:51-0400 Systolic blood pressure 112 mm[Hg] Ana Maria Marrero MD Work Phone: [facility] 05-06-2022 09:30-0500 Body weight 89.81 kg Dede Jose CONTROL MANAGER.CLINICAL BIOCHEMICAL GENETICIST Work Phone: [facility] 05-06-2022 09:30-0500 Diastolic blood pressure 64 mm[Hg] Dede Gipsy CONTROL MANAGER.CLINICAL BIOCHEMICAL GENETICIST Work Phone: [facility] 05-06-2022 09:30-0500 Systolic blood pressure 110 mm[Hg] Dede Jose CONTROL MANAGER.CLINICAL BIOCHEMICAL GENETICIST Work Phone: [facility] 03-28-2022 14:25-0500 Diastolic blood pressure 74 mm[Hg] Dede Gipsy CONTROL MANAGER.CLINICAL BIOCHEMICAL GENETICIST Work Phone: [facility] 03-28-2022 14:25-0500 Heart rate 70 /min Dede Gipsy CONTROL MANAGER.CLINICAL BIOCHEMICAL GENETICIST Work Phone: [facility] 03-28-2022 14:25-0500 Respiratory rate 12 /min Dede Gipsy CONTROL MANAGER.CLINICAL BIOCHEMICAL GENETICIST Work Phone: [facility] 03-28-2022 14:25-0500 SaO2% (BldA) [Mass fraction] 98 % Dede Gipsy CONTROL MANAGER.CLINICAL BIOCHEMICAL GENETICIST Work Phone: [facility] 03-28-2022 14:25-0500 Systolic blood pressure 124 mm[Hg] Dede Gipsy CONTROL MANAGER.CLINICAL BIOCHEMICAL GENETICIST Work Phone: [facility] 03-28-2022 13:58-0500 Body weight 90.72 kg Dede Gipsy CONTROL MANAGER.CLINICAL BIOCHEMICAL GENETICIST Work Phone: [facility] Encounters Encounter Date Encounter Type Care Provider Facility Start: 08-16-2024 End: 08-16-2024 Telephone encounter Veronica Waters APRN.RUFINA Work Phone: OB/Gynecology Comment on above: Heavy Bleeding Start: 07-15-2024 ambulatory [facility] Facility:[facility] Start: 07-15-2024 Encounter for gynecological examination (general) (routine) without abnormal findings [facility] Start: 07-15-2024 End: 07-15-2024 Patient encounter status Screen [facility] Start: 07-15-2024 End: 07-15-2024 Subsequent hospital visit by physician Screen Mammo [facility] Comment on above: Encounter for gyneco logical examination (general) (routine) without abnormal findings [Z01.419] Start: 05-22-2024 End: 05-22-2024 ambulatory Estrada Ballard APRN.CNP Work Phone: OB/Gynecology Start: 05-22-2024 End: 05-22-2024 Patient encounter procedure Estrada Ballard APRN.CNP Work Phone: OB/Gynecology Comment on above: Referrals? Dyslipidemia (Primar y Dx); Gastroesophageal reflux disease without esophagitis; IFG (impaired fasting glucose); Migraine with aura and without status migrainosus, not intractable; Class 2 severe obesity with serious comorbidity and body mass index (BMI) of 36.0 to 36.9 in adult, unspecified obesity type (HCC) Start: 04-23-2024 End: 06-23-2024 Follow-up encounter Yuriy Ellsworth APRN.CNP Work Phone: [facility] Start: 04-22-2024 End: 04-22-2024 ambulatory [facility] Facility:[facility] Start: 04-22-2024 End: 04-22-2024 Patient encounter procedure Angeles Ho APRN.CNP Work Phone: [facility] Comment on above: URI with cough and c ongestion (Primary Dx); Wheezing Start: 04-18-2024 End: 04-19-2024 Follow-up encounter Estrada Ballard APRN.CNP Work Phone: OB/Gynecology Start: 04-17-2024 End: 04-17-2024 ambulatory [facility] Facility:[facility] Start: 04-17-2024 End: 04-17-2024 Patient encounter procedure Estrada Ballard APRN.CNP Work Phone: OB/Gynecology Comment on above: Encounter for gyneco logical examination (general) (routine) without abnormal findings (Primary Dx); Encounter for screening mammogram for malignant neoplasm of breast; Screening for cervical cancer; Encounter for screening for human papillomavirus (HPV); Vaginal discharge; Family history of breast cancer; At risk for breast cancer Start: 04-17-2024 End: 04-17-2024 Patient encounter status Estrada Nellie CHACON Work Phone: [facility] Start: 03-08-2024 End: 03-08-2024 Patient encounter procedure Mandi Copeland APRN.CLINICAL BIOCHEMICAL GENETICIST Work Phone: Internal Medicine [place] Comment on above: Sinobronchitis (Prim ronna Dx) Start: 03-08-2024 End: 03-08-2024 [facility] Facility:[facility] Start: 02-27-2024 End: 02-27-2024 [facility] Facility:[facility] Start: 02-27-2024 End: 02-27-2024 Patient encounter procedure Angeles Ho APRN.CLINICAL BIOCHEMICAL GENETICIST Work Phone: [facility] Comment on above: Flu-like symptoms (P rimary Dx); URI with cough and congestion; Right ear pain; Influenza A Start: 01-31-2024 End: 01-31-2024 [facility] Facility:[facility] Start: 01-23-2024 End: 01-23-2024 [facility] Facility:[facility] Start: 01-23-2024 End: 01-23-2024 Patient encounter procedure Mary Ann Hill APRN.CLINICAL BIOCHEMICAL GENETICIST Work Phone: OB/Gynecology Comment on above: Gastroesophageal ref lux disease without esophagitis (Primary Dx); Dyslipidemia; Migraine with aura and without status migrainosus, not intractable; Family history of diabetes mellitus in first degree relative; Screening cholesterol level; Screening for deficiency anemia; Screening for diabetes mellitus; Screening for metabolic disorder; Screening for thyroid disorder; Class 2 severe obesity with serious comorbidity and body mass index (BMI) of 36.0 to 36.9 in adult, unspecified obesity type (HCC) Start: 10-03-2023 Telephone encounter Mary Ann benz APRN.CNP Work Phone: [place] Start: 07-15-2023 Documentation procedure Mammog venecia Coordinator [facility] Department Start: 07-15-2023 Letter encounter Mammography Coordinator [facility] Department Start: 07-14-2023 End: 07-14-2023 Subsequent hospital visit by physician Screen Mammo [facility] Comment on above: Encounter for screen ing mammogram for breast cancer [Z12.31] Start: 07-06-2023 Telephone encounter Ana Maria caban MD Work Phone: Mammogram Comment on above: Orders Start: 06-28-2023 Orders Only Ana Maria Hooks Work Phone: [place] Comment on above: Visit for screening mammogram (Primary Dx) Start: 12-09-2022 End: 12-09-2022 Patient encounter procedure Miriam Colvin PA-C Work Phone: [facility] Comment on above: Sinobronchitis (Prim ronna Dx) Start: 12-09-2022 ambulatory Sanya francois MD Work Phone: Internal Medicine [place] Comment on above: Still experiencing s ymptoms Start: 09-22-2022 End: 09-22-2022 Patient encounter procedure Yuriy Ellsworth APRN.CLINICAL BIOCHEMICAL GENETICIST Work Phone: [facility] Comment on above: Herpes zoster with c omplication (Primary Dx) Start: 07-18-2022 End: 07-18-2022 ambulatory Magdalena Denise INFANTE.CLINICAL BIOCHEMICAL GENETICIST Work Phone: Neurology Comment on above: Migraine with aura a nd without status migrainosus, not intractable (Primary Dx); Vision changes Start: 07-18-2022 End: 07-18-2022 Telemedicine consultation with patient Magdalena Walker NARESH.CLINICAL BIOCHEMICAL GENETICIST Work Phone: [facility] Start: 07-12-2022 Documentation procedure Mammog venecia Coordinator [facility] Start: 07-12-2022 Letter encounter Mammography Coordinator [facility] Department Start: 07-12-2022 End: 07-12-2022 Subsequent hospital visit by physician Screen Mammo [facility] M[facility] Comment on above: Encounter for screen ing mammogram for malignant neoplasm of breast [Z12.31] Start: 06-28-2022 End: 06-28-2022 Patient encounter procedure Ana Maria Marrero MD Work Phone: Internal Medicine [place] Comment on above: Annual physical exam (Primary Dx); Intractable headache, unspecified chronicity pattern, unspecified headache type; 1.5.2 Status migrainosis [346.73]; Screening for HIV (human immunodeficiency virus); Special screening examination for viral disease Start: 05-12-2022 ambulatory Dede Garcia CONTROL MANAGER.CLINICAL BIOCHEMICAL GENETICIST Work Phone: OB/Gynecology Comment on above: Change reason Start: 05-06-2022 End: 05-06-2022 Patient encounter procedure Dede Garcia CONTROL MANAGER.CLINICAL BIOCHEMICAL GENETICIST Work Phone: OB/Gynecology Comment on above: Surveillance of prev iously prescribed intrauterine contraceptive device (Primary Dx) Start: 04-12-2022 ambulatory Tonja Hooks Work Phone: [facility] Start: 04-12-2022 Follow-up encounter Tonja chavez MD Work Phone: OB/Gynecology Comment on above: IUD follow up Start: 03-28-2022 End: 03-28-2022 Patient encounter procedure Dede Garcia CONTROL MANAGER.CLINICAL BIOCHEMICAL GENETICIST Work Phone: OB/Gynecology Comment on above: Encounter for IUD in sertion (Primary Dx); Menorrhagia with regular cycle Start: 06-30-2021 Documentation procedure Mammog venecia Coordinator [facility] Start: 06-30-2021 Letter encounter Mammography Coordinator [facility] Department Start: 06-30-2021 End: 06-30-2021 Subsequent hospital visit by physician Screen Mammo [facility] Comment on above: Encounter for screen ing mammogram for malignant neoplasm of breast [Z12.31] Start: 04-27-2020 End: 04-27-2020 Emergency department patient visit ANA MARIA MARRERO [facility] Start: 02-25-2020 End: 02-25-2020 Patient encounter procedure [facility] Start: 11-08-2019 End: 11-08-2019 Patient encounter procedure ARTUR Benz KAREN [facility] Start: 06-08-2017 End: 06-08-2017 Emergency department patient visit Ana Maria Marrero Facility:[facility] Procedures Date Procedure Procedure Detail Performing Clinician Start: 07-15-2024 Screening digital br east tomosynthesis bi Estrada Ballard CONTROL MANAGER.CLINICAL BIOCHEMICAL GENETICIST Work Phone: Start: 02-27-2024 INFLUENZA A&B MOLECU LAR (POC) Angeles Ho CONTROL MANAGER.CLINICAL BIOCHEMICAL GENETICIST Work Phone: Start: 07-12-2022 Screening mammograph y bi 2-view breast inc cad Dede Garcia CONTROL MANAGER.CLINICAL BIOCHEMICAL GENETICIST Work Phone: Start: 03-28-2022 Urine test visual color cmprsn meths Dede Gipsy CONTROL MANAGER.CLINICAL BIOCHEMICAL GENETICIST Work Phone: Start: 06-30-2021 Screening mammograph y bi 2-view breast inc cad Tonja Lerner MD Work Phone: Plan of Treatment Date Care Activity Detail Author Start: 08-18-2025 End: 08-18-2025 Patient encounter procedure 08/18/2025 9:30 AM EDT Appointment Mammography [address] [place] [address] High risk for breast cancer Mammography Comment on above: High risk for breast cancer Start: 08-18-2025 End: 08-18-2025 Patient encounter procedure 08/18/2025 8:20 AM EDT Office Visit [facility] [address] [place] [address] Sydnee Francisco MD [address] [place] [address] High risk for breast cancer Breast Center Comment on above: High risk for breast cancer Start: 04-17-2025 Screening for malign ant neoplasm of cervix Cervical Cancer Screening [facility] Start: 01-06-2025 End: 01-06-2025 Patient encounter procedure 01/06/2025 10:40 AM EST Appointment Radiology [address] [place] [address] At risk for breast cancer [Z91.89] MRI BREAST WO/W IVCON BILATERAL MRI BREAST 3D POST PROCESSING Radiology Comment on above: At risk for breast c ancer [Z91.89] MRI BREAST WO/W IVCON BILATERAL MRI BREAST 3D POST PROCESSING Start: 08-28-2024 End: 08-28-2024 Patient encounter procedure 08/28/2024 1:45 PM EDT Office Visit [facility] [address] [place] [address] Ritenour, Adasia, LGC Family history of breast cancer [Z80.3] [facility] Comment on above: Family history of br east cancer [Z80.3] Start: 08-22-2024 End: 08-22-2024 Patient encounter procedure 08/22/2024 1:00 PM EDT Office Visit OB/Gynecology [address] [place] [address] Mary Ann Hill, CONTROL MANAGER.CLINICAL BIOCHEMICAL GENETICIST [address] [place] [place] [address] wt mgmt f/u OB/Gynecology Comment on above: wt mgmt f/u Start: 08-19-2024 End: 08-19-2024 Patient encounter procedure 08/19/2024 1:30 PM EDT Office Visit OB/Gynecology [address] [place] [address] Dede Garcia, NARESH.CLINICAL BIOCHEMICAL GENETICIST [address] [place] [address] Heavy bleeding lrg clots ( IUD 2yrs) OB/Gynecology Comment on above: Heavy bleeding lrg c lots ( IUD 2yrs) Start: 07-15-2024 End: 07-15-2024 Patient encounter procedure 07/15/2024 7:30 AM EDT Appointment Mammogram [address] [place] [address] Mammogram Start: 05-22-2024 End: 05-22-2024 Patient encounter procedure 05/22/2024 7:30 AM EDT Office Visit OB/Gynecology [address] [place] [address] Mary Ann Hill, CONTROL MANAGER.CLINICAL BIOCHEMICAL GENETICIST [address] [place] [address] wt mgmt f/u OB/Gynecology Comment on above: wt mgmt f/u Start: 04-05-2024 HPV TESTING HPV TESTING [facility] Start: 04-05-2024 PAP TESTING PAP TESTING [facility] Start: 04-05-2024 Screening for malign ant neoplasm of cervix [facility] Start: 01-23-2024 End: 04-23-2024 CBC panel - Blood by Automated count COMPLETE BLOOD COUNT Lab Routine Screening for deficiency anemia Class 2 severe obesity with serious comorbidity and body mass index (BMI) of 36.0 to 36.9 in adult, unspecified obesity type (HCC) Expected: 01/23/2024, Expires: 04/23/2024 [facility] Comment on above: Expected: 01/23/2024 , Expires: 04/23/2024 Start: 01-23-2024 End: 04-23-2024 Comprehensive metabolic 2000 panel - Serum or Plasma COMPREHENSIVE METABOLIC PANEL Lab Routine Family history of diabetes mellitus in first degree relative Screening for diabetes mellitus Screening for metabolic disorder Class 2 severe obesity with serious comorbidity and body mass index (BMI) of 36.0 to 36.9 in adult, unspecified obesity type (HCC) Expected: 01/23/2024, Expires: 04/23/2024 [facility] Comment on above: Expected: 01/23/2024 , Expires: 04/23/2024 Start: 01-23-2024 End: 04-23-2024 Hemoglobin A1c in Blood HEMOGLOBIN A1C Lab Routine Family history of diabetes mellitus in first degree relative Screening for diabetes mellitus Class 2 severe obesity with serious comorbidity and body mass index (BMI) of 36.0 to 36.9 in adult, unspecified obesity type (HCC) Expected: 01/23/2024, Expires: 04/23/2024 [facility] Comment on above: Expected: 01/23/2024 , Expires: 04/23/2024 Start: 01-23-2024 End: 04-23-2024 Insulin [Units/volume] in Serum or Plasma INSULIN ASSAY BLOOD Lab Routine Family history of diabetes mellitus in first degree relative Screening for diabetes mellitus Class 2 severe obesity with serious comorbidity and body mass index (BMI) of 36.0 to 36.9 in adult, unspecified obesity type (HCC) Expected: 01/23/2024, Expires: 04/23/2024 [facility] Work Phone: Comment on above: Expected: 01/23/2024 , Expires: 04/23/2024 Start: 01-23-2024 End: 04-23-2024 Lipid 1996 panel - Serum or Plasma LIPID PANEL BASIC Lab Routine Dyslipidemia Screening cholesterol level Class 2 severe obesity with serious comorbidity and body mass index (BMI) of 36.0 to 36.9 in adult, unspecified obesity type (HCC) Expected: 01/23/2024, Expires: 04/23/2024 [facility] Comment on above: Expected: 01/23/2024 , Expires: 04/23/2024 Start: 01-23-2024 End: 04-23-2024 Thyrotropin [Units/volume] in Serum or Plasma THYROID STIMULATING HORMONE Lab Routine Screening for thyroid disorder Class 2 severe obesity with serious comorbidity and body mass index (BMI) of 36.0 to 36.9 in adult, unspecified obesity type (HCC) Expected: 01/23/2024, Expires: 04/23/2024 [facility] Comment on above: Expected: 01/23/2024 , Expires: 04/23/2024 Start: 01-23-2024 End: 01-23-2024 Patient encounter procedure 01/23/2024 8:00 AM EST Office Visit OB/Gynecology [address] [place], [place] [id number] Mary Ann Hill APRN.CLINICAL BIOCHEMICAL GENETICIST [address] [place] [address] new weight management OB/Gynecology Comment on above: new weight managemen t Start: 11-05-2023 Influenza vaccination Influenza Vacc ine (#1) [facility] Start: 07-14-2023 End: 07-14-2023 Patient encounter procedure Mammogram Comment on above: did phone note to re lease order 5/2 screening mammogram, order pended screening mammogram Start: 11-04-2022 Covid-19 Vaccine () Covid-19 Vaccine () [facility] Start: 11-04-2022 Influenza vaccination C [facility] Start: 07-13-2022 Urine microalbumin profile [facility] Start: 06-28-2022 End: 08-28-2022 Basic metabolic 2000 panel - Serum or Plasma BASIC METABOLIC PNL Lab Routine Annual physical exam Expected: 06/28/2022, Expires: 08/28/2022 [facility] Work Phone: Comment on above: Expected: 06/28/2022 , Expires: 08/28/2022 Start: 06-28-2022 End: 08-28-2022 CBC W Auto Differential panel - Blood CBC + DIFF Lab Routine Annual physical exam Expected: 06/28/2022, Expires: 08/28/2022 [facility] Work Phone: Comment on above: Expected: 06/28/2022 , Expires: 08/28/2022 Start: 06-28-2022 End: 08-28-2022 Hepatitis C virus Ab [Presence] in Serum HEP C AB IA W/CONF SCRN Lab Routine Special screening examination for viral disease Expected: 06/28/2022, Expires: 08/28/2022 [facility] Work Phone: Comment on above: Expected: 06/28/2022 , Expires: 08/28/2022 Start: 06-28-2022 End: 08-28-2022 HIV 1+2 Ab [Presence] in Serum or Plasma by Immunoassay HIV 1 2 COMBO(AG/AB),WITH REFLEX TO DIFFERENTIATION Lab Routine Screening for HIV (human immunodeficiency virus) Expected: 06/28/2022, Expires: 08/28/2022 [facility] Work Phone: Comment on above: Expected: 06/28/2022 , Expires: 08/28/2022 Start: 06-28-2022 End: 08-28-2022 Lipid 1996 panel - Serum or Plasma LIPID PANEL BASIC Lab Routine Annual physical exam Expected: 06/28/2022, Expires: 08/28/2022 [facility] Work Phone: Comment on above: Expected: 06/28/2022 , Expires: 08/28/2022 Start: 09-11-2020 COVID-19 VACCINE (3 - Booster for Moderna series) COVID-19 VACCINE (3 - Booster for Moderna series) [facility] Start: 06-09-2020 COVID-19 VACCINE (3 - Booster for Moderna series) COVID-19 VACCINE (3 - Booster for Moderna series) [facility] Start: 06-09-2020 COVID-19 VACCINE (3 - Moderna series) COVID-19 VACCINE (3 - Moderna series) [facility] Start: 05-12-2020 Covid-19 Vaccine (3 - Moderna risk series) Covid-19 Vaccine (3 - Moderna risk series) [facility] Start: 04-05-2020 Screening for malign ant neoplasm of cervix Cervical Cancer Screening [facility] Start: 09-07-2003 Hepatitis B Vaccine (1 of 3 - 19+ 3-dose series) Hepatitis B Vaccine (1 of 3 - 19+ 3-dose series) [facility] Start: 09-07-2003 Pneumococcal vaccination Pneumococcal Vaccine (1 of 2 - PCV) [facility] Start: 09-07-2003 Shingrix Vaccine (1 of 2) Shingrix Vaccine (1 of 2) [facility] Start: 2002 Anxiety Screening Anxiety Screening [facility] Start: 2002 HEPATITIS C SCREENING HEPATITIS C SC ALIYAH [facility] Start: 2002 HIV SCREENING HIV SCREENING [facility] Start: 1990 Pneumococcal vaccination Pneumococcal Vaccine (1 of 2 - PCV) [facility] Start: 1984 HEPATITIS B (1 of 3 - 3-dose series) HEPATITIS B (1 of 3 - 3-dose series) [facility] Start: 1984 Hepatitis B Vaccine (1 of 3 - 3-dose series) Hepatitis B Vaccine (1 of 3 - 3-dose series) [facility] BACTERIAL VAGINOSIS NAAT BACTERIAL VAGINOSIS NAAT Lab Routine Vaginal discharge Ordered: 04/17/2024 [facility] Comment on above: Ordered: 04/17/2024 LEWIS/TRICHOMONAS NAAT LEWIS/TRICHOMONAS NAAT Lab Routine Vaginal discharge Ordered: 04/17/2024 [facility] Comment on above: Ordered: 04/17/2024 COVID & INFLUENZA A/ B & RSV PCR, ROUTINE COVID & INFLUENZA A/B & RSV PCR, ROUTINE Microbiology Routine URI with cough and congestion 04/22/2024 12:42 PM EST [facility] Work Phone: End: 05-17-2025 DBT Breast - bilateral screening RODY SCREENING W ZAC Radiology Routine Encounter for gynecological examination (general) (routine) without abnormal findings 1 Occurrences starting 04/17/2024 until 05/17/2025 [facility] Comment on above: 1 Occurrences starti ng 04/17/2024 until 05/17/2025 Insertion intrauteri ne device iud INSERT INTRAUTERINE DEVICE Procedures Routine Encounter for IUD insertion Ordered: 03/28/2022 [facility] Work Phone: Comment on above: Ordered: 03/28/2022 End: 08-04-2024 MG Breast Screening RODY SCREENING Radiology Routine Encounter for screening mammogram for breast cancer 1 Occurrences starting 07/06/2023 until 08/04/2024 [facility] Work Phone: Comment on above: 1 Occurrences starti ng 07/06/2023 until 08/04/2024 MG Breast Screening RODY SCREENIN G Radiology Routine Visit for screening mammogram Ordered: 07/11/2023 [facility] Work Phone: Comment on above: Ordered: 07/11/2023 MG Breast Screening RODY SCREENIN G Radiology Routine Encounter for screening mammogram for breast cancer 07/14/2023 7:32 AM EDT [facility] Work Phone: PAP TEST PAP TEST Lab [facility] olvin Encounter for gynecological examination (general) (routine) without abnormal findings Screening for cervical cancer Encounter for screening for human papillomavirus (HPV) Ordered: 04/17/2024 [facility] Work Phone: Comment on above: Ordered: 04/17/2024 [facility] Immunizations Immunization Date Immunization Notes Care Provider Fa [facility] 12-16-2022 influenza virus vaccine, unspecified formulation Mary Ann Hill APRN.CNP Work Phone: [facility] 12-31-2021 influenza virus vaccine, unspecified formulation Sanya Kuo MD Work Phone: [facility] 12-05-2019 influenza virus vaccine, unspecified formulation Screen [facility] Work Phone: 12-18-2018 influenza virus vaccine, unspecified formulation Screen [facility] Work Phone: 01-02-2015 influenza, seasonal, injectable Screen [facility] Work Phone: 07-13-2012 tetanus toxoid, redu cabrera diphtheria toxoid, and acellular pertussis vaccine, adsorbed Screen [facility] 12-23-2009 influenza virus vaccine, unspecified formulation Screen [facility] 06-19-2008 tetanus toxoid, redu cabrera diphtheria toxoid, and acellular pertussis vaccine, adsorbed Screen [facility] 10-18-2006 human papilloma viru s vaccine, quadrivalent Screen [facility] Work Phone: 06-21-2006 human papilloma viru s vaccine, quadrivalent Screen [facility] Work Phone: 05-02-2006 human papilloma viru s vaccine, quadrivalent Screen [facility] Work Phone: Payers Date Payer Category Payer Private Health Insurance [employer] [id number] 2021 Unknown [employer] PPO [id number] 2021-Present [phone] [address] [place] [address] PPO [id number] 2021 Unknown [employer] PPO [id number] 2021-Present [phone] [address] [place] [address] PPO [id number] 2021 Unknown [id number] 2017 Unknown [id number] 1984 Unknown [id number] 1984 Unknown [id number] 1984 Unknown [id number] Social History Date Type Detail Facility Start: 03-14-2022 Tobacco smoking stat [facility] Never smoked tobacco [facility] Start: 06-07-2021 End: 07-15-2024 Alcohol intake Current drinker of alcohol (finding) [facility] Start: 08-19-2019 End: 06-27-2022 History SDOH Alcohol Frequency 2 [facility] Start: 08-19-2019 End: 06-27-2022 History SDOH Alcohol Std Drinks 1 [facility] Start: 10-24-2014 History SDOH Alcohol Comment Rarely [facility] Start: 04-05-2019 End: 06-03-2019 History SDOH Social Connections Phone 5 [facility] Start: 04-05-2019 End: 06-27-2022 History SDOH Social Connections Faith 3 [facility] Start: 04-05-2019 End: 06-27-2022 History SDOH Physical Activity DPW 7 [facility] Start: 08-19-2019 Education 17 [facility] Start: 1985 Sex Assigned At Not on file C [facility] Start: 06-20-2021 End: 06-30-2021 Exposure to SARS-CoV-2 (event) Not sure [facility] Start: 03-14-2022 Tobacco use and exposure Smoke less tobacco non-user [facility] Start: 06-27-2022 History SDOH Alcohol Std Drinks 0 [facility] Start: 04-24-2023 History SDOH Social Connections Faith 98 [facility] Start: 06-27-2022 History SDOH Social Connections Living 6 [facility] Start: 06-27-2022 End: 04-17-2024 History of Social function [facility] Start: 06-27-2022 End: 04-17-2024 Social connection and isolation panel [facility] How often do you att end bahai or yazidi services? Patient refused [facility] Do you belong to any clubs or organizations such as bahai groups, unions, fraternal or athletic groups, or school groups? No [facility] Are you now , , , , never or living with a partner? [facility] How often to you hav e a drink containing alcohol? Never [facility] How hard is it for y ou to pay for the very basics like food, housing, medical care, and heating Somewhat hard [facility] Do you feel stress - tense, restless, nervous, or anxious, or unable to sleep at night because your mind is troubled all the time - these days [OSQ] To some extent [facility] (I/We) worried blanquita er (my/our) food would run out before (I/we) got money to buy more. Sometimes true [facility] The food that (I/we) bought just didn't last, and (I/we) didn't have money to get more. Never true [facility] Start: 1985 Sex Assigned At Female C [facility] Start: 10-03-2023 Gender identity Identifies as female gender (finding) [facility] Start: 10-03-2023 Sexual orientation Heterosexual (nathan garcia) [facility] Functional Status Date Assessment Result Facility 08-06-2014 Are you deaf, or do you have serious difficulty hearing No 08/06/2014 11:31 AM Malgorzata Ruiz LPN No [facility] 08-06-2014 Are you blind, or do you have serious difficulty seeing, even when wearing glasses No 08/06/2014 11:31 AM Malgorzata Ruiz LPN No [facility] 08-06-2014 Do you have serious difficulty walking or climbing stairs No 08/06/2014 11:31 AM Malgorzata Ruiz LPN No [facility] 08-06-2014 Do you have difficul ty dressing or bathing No 08/06/2014 11:31 AM EDT Malgorzata Alan LPN No [facility] 08-06-2014 Because of a physica l, mental, or emotional condition, do you have difficulty doing errands alone such as visiting a physician's office or shopping No 08/06/2014 11:31 AM EDT Malgorzata Alan LPN No [facility] Mental Status Date Assessment Result Facility 08-06-2014 Because of a physica l, mental, or emotional condition, do you have serious difficulty concentrating, remembering, or making decisions No 08/06/2014 11:31 AM EDT Malgorzata Alan LPN No [facility] Clinical Notes 05-07-2014 to 08-16-2024 Telephone Encounter - Cammy Soliz RN - 08/16/2024 4:14 PM EDTTelephone Encounter - Cammy Soliz RN - 08/16/2024 4:14 PM EDTBTim castorena Med[employer] Tech - 07/15/2024 7:30 AM EDT Note Date & Type Note Facility 08-16-2024 Telephone encounter Note Patient called with c/o heavy bleeding since last night. She needed to change her pads overnight x4. Since 8 AM today she has been soaking a pad (front to back side to side) every hour. Patient was dizzy and passed out at work. Denies SOB or CP. States her bleeding slowed down a little bit. Now she is having pain across her lower back similar to back labor. Has an IUD. Asking for advice. Recommended patient have someone take her to ER for evaluation. Patient voiced agreement. SEMAJ Soliz, LESLEY [facility] 08-16-2024 Miscellaneous Notes Patient called with c/o heavy bleeding since last night. She needed to change her pads overnight x4. Since 8 AM today she has been soaking a pad (front to back side to side) every hour. Patient was dizzy and passed out at work. Denies SOB or CP. States her bleeding slowed down a little bit. Now she is having pain across her lower back similar to back labor. Has an IUD. Asking for advice. Recommended patient have someone take her to ER for evaluation. Patient voiced agreement. SEMAJ Soliz, LESLEY documented in this encounter [facility] 07-15-2024 History of Presen t illness Narrative Radiology Service Progress Note PATIENT NAME: Veronica Dover DATE OF SERVICE: July 15, 2024 TIME: 8:34 AM PATIENT IDENTITY VERIFICATION COMPLETED USING TWO (2) IDENTIFIERS: Name and Date of confirmed by patient verbally. FALL SCREENING: Has the patient had 2 falls in the last year or 1 fall with injury or currently using an Ambulatory Assistive Device (Walker, Cane, Wheelchair, Crutches, etc.)? No PATIENT GENDER DATA: Assigned female at . status: : No status: NO. PATIENT RELEVANT IMPLANT DATA REVIEWED: Not Applicable PATIENT PRESENTS WITH AN IMPLANTABLE OR ATTACHED MACHINE PAN GREASER: No RADIOLOGY DEPARTMENT: Mammography PERIPHERAL IV DATA: Not applicable SIGNED BY: Ronald Lilly July 15, 2024 8:34 AM documented in this encounter [facility] 07-15-2024 Note HNO ID: [id number] Author: TIM ACE Mammo Tech Service: ? Author Type: Drapery Estimator Type: Progress Notes Filed: 07/15/2024 08:34 Note Text: Radiology Service Progress Note PATIENT NAME: Veronica Dover DATE OF SERVICE: July 15, 2024 TIME: 8:34 AM PATIENT IDENTITY VERIFICATION COMPLETED USING TWO (2) IDENTIFIERS: Name and Date of confirmed by patient verbally. FALL SCREENING: Has the patient had 2 falls in the last year or 1 fall with injury or currently using an Ambulatory Assistive Device (Walker, Cane, Wheelchair, Crutches, etc.)? No PATIENT GENDER DATA: Assigned female at . status: : No status: NO. PATIENT RELEVANT IMPLANT DATA REVIEWED: Not Applicable PATIENT PRESENTS WITH AN IMPLANTABLE OR ATTACHED MACHINE PAN GREASER: No RADIOLOGY DEPARTMENT: Mammography PERIPHERAL IV DATA: Not applicable SIGNED BY: Tim Ace [employer] Labso Tech July 15, 2024 8:34 AM [facility] 05-22-2024 Instructions Mary Ann Hill APRN.[facility] - 05/22/2024 8:09 AM EDT - Whole food balanced protein, controlled carbohydrate nutrition plan - 30 g of protein 3 times a day and up to 30 g of carbs at lunch and dinner only. Breakfast - 30 gm protein with limit of 2 gm carbohydrates. Options include: Premier Protein or generic 30 gm protein 1 gm sugar or 5 eggs or 2-3 eggs and some unbreaded meat and/or cheese. No fruit, vegetables, bread, grain, yogurt, Smoothies, etc. Lunch and dinner - 30 gm protein is the goal with less than 30 gm carbohydrates Snacks - all protein or more protein than carbs Protein - no carbs Egg 1 large - 6g Egg white 1 large 3.6g 3 oz is approximately the size of a deck of cards and equals 21 g protein so 4 oz is 28 gm protein Beef, Chicken, Huguen[place], Pork, Armendariz 1 oz 7g Fish, Tuna Fish 1 oz 7g (Starkist tuna packet 2.6 oz 17 gm protein) Seafood (Crabmeat, Shrimp, Lobster) 1 oz 6g Protein shakes (read labels) Premier Protein or generic [employer] Equate, [employer] High Performance- 30g protein & 1g carb - meal replacement Premier Protein powder or generic- 30 gm protein, 1g carb Premier Protein plant protein powder - 25 gm protein, 0 sugar/2 carb Vanilla and chocolate (not a meal replacement) Fairlife 30 gram protein - 30g protein & 3g carb BOOST Glucose Control Max 30g Protein Nutritional Drink - 30g protein & 1 carb - meal replacement Slimfast High Protein - 20g protein & 1g carb Ensure Max Protein Nutrition Shake 30g protein & 2 carb Protein AND carbs Beef/Huguenot Jerky 1 oz dried 10-15g protein - check carb count, can be high if sugar added Slim Donaldo - 6 gm protein and 4 net carb Great Value original turkey sausage sticks - 7 gm protein and 2 gm carb Savi & Remigio (at [facility]) Original smoked sausage sticks - 8 gm protein and 0 carb Imitation Crab Meat 1 oz - 2g protein & 4g carb Milk, skim 2% or 1% 8 oz - 8g protein & 12g carb Fairlife 2% milk 8 oz -13 g protein & 6g carb Ghanaian yogurt Full Fat Ghanaian Yogurt 1 cup - 20.4g protein & 9.1g carb 2% Ghanaian Yogurt 1 cup - 22.7g protein & 9.1g carb 0% (fat-free) Ghanaian Yogurt - 1 cup 24g protein & 9.3g carb Aldi Protein Ghanaian yogurt single svg - 13/g15g protein & 7g carb Chobani Zero Sugar single svg: - 12g protein & 5g carb Dannon Ghanaian Light + Fit 1 single svg - 12g protein & 9g carb Oikos Pro single svg - 20g protein & 8g carb Oikos Triple Zero Ghanaian Nonfat Yogurt 1 single svg - 15g protein & 7g carb Oikos Pro drinkable yogurt 1 single svg - 23 g protein & 8 g carb :ratio, KETO Friendly Dairy Snack 1 single svg - 15g protein & 2g carb :ratio Protein 1 single svg - 25g protein & 8g carb Two Good Lowfat Ghanaian Yogurt, [place], Lower Sugar - 12g protein & 2g carb Yoplait Protein 1 single svg 15gm protein & 5gm carb Dairy Free - [place] unsweetened Ghanaian almond/soy 15 gm protein & 3 gm carb Dairy Free - True Goodness by [facility] coconut-based yogurt alternative 1 gm protein 1 gm net carb 180 gigi Cheese each oz Brie 5.9g protein & 0.1g carb Cheddar 7g protein & 0.4g carb Perez 6.7g protein & 0.7g carb Cream Cheese 1.7g protein & 1.2g carb Feta 4g protein & 1.2g carb Mozzarella 6.3g protein & 0.6g carb Parmesan 10g protein & 0.9g carb Citizen Of [place] 7.6g protein & 1.5g carb Cottage Cheese 1/2 c Breakstone 2% 13g protein 7g carb Holley 2% 13g protein 5 g carb Good Culture 2% 14g protein 3g carb Rios s Low Fat 12g protein & 4g carb Legumes Lentils cup 9g protein & 20g carb Richard beans cup 7g protein & 20g carb Kidney, Black, [place], Cannellini beans cup 8g protein & 20g carb Soybeans 1/2 c 14g complete protein & 8.5g carb [place] milk, unsweetened 8 oz 1g protein & 2g carb Soy milk 8 oz 3.5g protein & 1.6g carb Tofu 1/2 cup 10g protein & 2.3g carb Peanut butter, natural 2 Tbsp 7-8g protein & 4g net carbs, 190 calories PB2 powder 2 Tbsp 6g protein & 5g carb Nuts and Seeds per oz Almonds - 5.9g protein & 6.1g carb [place] Nuts - 4.0g protein & 3.4g carb Cashews - 5.1g protein & 9.2g carb Hazelnuts - 4.2g protein & 4.7g carb Hemp seeds/hearts 3 T/30 gms - 9.5 gm complete protein and 2.5 gm carb Peanuts - 7g protein & 4.6g carb Pecans - 2.6g protein & 3.9g carb Pistachios - 5.8g protein & 7.8g carb Pumpkin Seeds - 6.9g protein & 5g carb [place] Seeds - 5.8g protein & 5.6g carb Walnuts - 4.3g protein & 3.8g carb Edamame Beans (soybean) snack 1 pack 11 gm complete protein 2 carb 5 (FIVE) gram carb vegetable options 1 cup raw OR cup cooked: Asparagus [place] sprouts Beets Broccoli Brussel sprouts Cabbage Carrots Cauliflower Celery [place] Eggplant Green beans Lettuce Peppers Snap peas Spaghetti squash Spinach Tomato Turnips Zucchini 15 gram carb vegetable options cup cooked corn or hominy corn on the cob, large (5 oz) cup cooked green peas 4.3 gm complete protein cup cooked richard beans 1 small potato or sweet potato cup cooked potato, plain cup cooked sweet potato, plain 1 cup winter squash (pumpkin, acorn, butternut) 1 cup marinara or pasta sauce - check label cup tomato juice cup tomato puree Beans, Seeds, Nuts cup cooked beans (kidney, guerrero, red, green, etc.) cup cooked lentils cup baked beans 4 tablespoons nut butter <15 gram carb fruit options Berries have the lowest sugar content 1/2 medium apple - 12.5 carbs 1/2 medium avocado - 6.5 gm carbs 1/2 medium banana - 15 carbs 1/2 cup blueberries - 11 carbs - may actually help you lose weight 1/2 cup fresh cherries -11 carbs 1 medium Nina -9 carbs 1/2 cup fresh cranberries - 6.5 carbs 1/2 c grapes - 15 carbs 1/2 medium grapefruit - 10.5 carbs 1/2 cup diced honeydew melon - 8 carbs 1 medium kiwi without skin - 11 carbs 1/2 cup sliced ching -14 carbs 1 medium nectarine - 15 carbs 1 medium orange -15.5 carbs 1 medium peach -14.5 carbs 1/2 cup fresh pineapple -11 carbs 1 medium plum -7.5 carbs 1 prune - 6 carbs 1/4 c raisins - 31.25 carbs 1/2 cup raspberries -7.5 carbs 1/2 c strawberries - 12.7 carbs 1 medium tangerine -12 carbs 1/2 cup diced watermelon - 6 carbs Grains Brown rice 1/2 c 5.5g protein 24 carb White long-grain rice 1/2 c 2g protein 22.5 carb Quinoa 1/2 c 4 gm complete protein 25 carb Oatmeal, old fashioned 1/2 c 5g protein 27g carb High Protein Snack Ideas 1. Jerky 2. Martell mix without dried fruit 3. Huguenot roll-ups 4. Ghanaian yogurt 5. Veggies and yogurt dip 6. Tuna 7. Hard-boiled eggs 8. Peanut butter with celery 9. Cheese slices/ Cheese Stick 10. Handful of almonds, peanuts or walnuts 11. Cottage Cheese 12. Beef sticks 13. Protein bars 14. Canned [place] 15. Pumpkin seeds 16. Nut butter 17. Protein shakes 18. Avocado and chicken salad 19. Egg muffins 20. Leftover protein or lunch meat 21. 1/2 c blended cottage cheese or Ghanaian yogurt with dry ranch/Mrs. Dash/herb seasoning mix to make protein dip 22. 1/2 c blended cottage cheese with 1 Tbsp sugar-free dry cheesecake pudding mix 12g protein 10 carb 23. Pudding - 1 30 gm protein shake with 1/2 pkg sugar-free pudding 4 svgs - 7.8 gm protein, 5 carb each svg 24. SF Sunkist or Root Beer with 1-2 Tablespoons heavy whipping cream 25. Mini frozen dessert bites - layer protein yogurt, skinny syrup and crushed nuts and freeze A Short Walk After Meals Is All It Takes to Lower Blood Sugar Researchers studying older adults with pre-diabetes found that 15 minutes of [id number] exercise after every meal curbed risky blood sugar spikes all day. Seniors are more prone to developing diabetes, but a little exercise could make a big difference. A study published today in Diabetes Care found that three short walks each day after meals were as effective at reducing blood sugar over 24 hours as a single 45-minute walk at the same moderate pace. Even better, taking an evening constitutional was found to be much more effective at lowering blood sugar following supper. The evening meal, often the largest of the day, can significantly raise 24-hour glucose levels. The innovative exercise science study was conducted at the Clinical Exercise Physiology Laboratory at the [facility] ([facility]) using whole room calorimeters. Christina Coronado, Ph.D., chair of the [facility] Department of Exercise Science, led the study. These findings are good news for people in their 70s and 80s who may feel more capable of engaging in intermittent physical activity on a daily basis, Cliff said in a press release. Putting Humans in a Box to Measure Their Energy Use The whole room calorimeter (WRM), which looks like a very small hotel room, is a controlled-air environment for human study that allows scientists to calculate a person s energy expenditure by testing samples of air. The balance of oxygen consumed and carbon dioxide produced varies according to the activity level of the person in the room. The WRM also measures the body s use of different food fuels, such as carbohydrates, proteins, and fats. The 10 study participants spent three 48-hour periods in the small calorimeter rooms. Each room was equipped with a bed, toilet, sink, treadmill, television, and computer, leaving little room to move around. Participants ate standardized meals, and their blood sugar levels were monitored continuously using blood tests. The first day in the [facility] served as a control period, with no exercise. On the second day, participants either walked at a moderate pace on the treadmill for 15 minutes after each meal, or for 45 minutes in either the late morning or before supper. The researchers observed that the evening post-meal walk was the most effective in lowering blood sugar levels for a full 24 hours. The typical exaggerated rise in blood sugar after supper--which often lasts well into the night and paint pourer--was curbed significantly as soon as the participants started to walk on the treadmill, the study authors said. How Age Affects Insulin Resistance An estimated 79 million Americans have pre-diabetes, according to the National Diabetes Education Program run by the National Institutes of Health. But many people have no idea they are at risk. According to Cliff, older people may be particularly susceptible to poor blood sugar control after meals because inactive muscles contribute to insulin resistance. The problem is compounded by slow or low insulin secretion by the pancreas, which often occurs as the body ages. Post-meal high blood sugar is a adams risk factor in the progression from impaired glucose tolerance (pre-diabetes) to type 2 diabetes and cardiovascular disease, Cliff explained. Other studies have suggested that weight loss and exercise can prevent type 2 diabetes. The authors say theirs is the first study to examine short bouts of physical activity timed around the risky period following meals--a time when blood sugar can rise rapidly and potentially cause damage to internal organs and blood vessels. The muscle contractions connected with short walks were immediately effective in blunting the potentially damaging elevations in post-meal blood sugar commonly observed in older people, Cliff said. If the findings of this small study hold up to further testing, it could lead to an inexpensive prevention strategy for pre-diabetes, which can develop over time into type 2 diabetes. Back in the day, it was de rigueur to take a morning, noon, and evening walk. The time has come to get up from the table, tie on those walking shoes, and take a little stroll around the block. [email or web address] documented in this encounter [facility] 05-22-2024 History of Presen t illness Narrative Images from the original note were not included. Some documentation from previous visit of 01/23/2024 was copied and pasted, documentation has been reviewed and edited as necessary for today's visit. Patient Summary: Veronica is a 38 year old Female who presents for follow-up evaluation of obesity/weight management to treat and prevent related co-morbidities. In our previous visits we have discussed lifestyle intervention including a nutrition recommendations and physical activity optimization. Her last office visit was 4 months ago. Assessment/plan from last visit: - behavioral intervention - FBG 103 Family hx DM Interval History PT specifies the following items as new or significant updates since the last appointment: Eating protein before working out - had upset stomach at first but now feels good Weight loss since last vist: 8 lbs Date Weight BMI AOM 05/22/2024 211 lb 34.99 01/23/2024 219 lb 35.16 Waist Circumference: 46 in Neck Circumference: 15.5 in 5% weight loss = 208 lbs, 10% weight loss = 197 lbs Anti-obesity medications: none. Weight promoting medications: none Previous Diet (initial appointment): Awake - 0415 water and 5 kcal 6 oz amino acids. 0500 - 1.5 mile walk and strength training B - 0630 Smoothie - 1 c spinach, 1 c berries/banana, 1 T PB, 1/2 c plain Ghanaian yogurt 18 g protein 4 carb, 3/4 c unsweetened almond milk, 1 scoop protein powder 20 gm 4 net carb S - rarely handful almonds L - 12-1 pm leftovers WE - May be 2 eggs, mosquera, 1 pc GF toast S - banana or apple or orange D - 6 pm protein, all vegetables, small amount carb - mashed potato/corn/brown rice/quinoa S - none Eats out occasionally -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 01/13/2012 documented as of this encounter (statuses as of 12/10/2022) [facility] History of Past illness Narrative* Problem Noted Date Diagnosed Date Resolved Date Headache 05/07/2014 05/12/2016 Last Assessment & Plan: The patient went up to [facility] 3 months ago , she was diagnosed with status migranosis she was given a cocktail and her headache stopped after that she has not had headache since. She is very happy about that. Supervision of other normal 01/13/2012 09/25/2012 Overview: Boy on US- sammi Flu given 12/19/11 Supervision of normal first 12/28/2009 01/13/2012 Vaginal inclusion cyst 04/30/200901/12 Need for prophylactic vaccin ation with tetanus-diphtheria (Td) 06/19/2008 01/13/2012 Goiter, unspecified 01/15/2008 01/13/20 12 PARESTHESIAS RIGHT ARM 05/25/200501/12 Depressive disorder, not elsewhere classified 01/22/20 05 01/13/2012 Overview: 01/03/2012 Pt has a history of depression diagnosed in 2004. She has been off medication for since 2005. Discussed increased risks of depression during and and importance of reporting the development or worsening of symptoms should they occur. Pt denies ever having any suicidal thoughts or tendencies or thoughts of hurting others. Lumbago 01/21/2005 01/13/2012 documented as of this encounter (statuses as of 12/10/2022) [facility] History of Past illness Narrative* Problem Noted Date Diagnosed Date Resolved Date Headache 05/07/2014 05/12/2016 Last Assessment & Plan: The patient went up to [facility] 3 months ago , she was diagnosed with status migranosis she was given a cocktail and her headache stopped after that she has not had headache since. She is very happy about that. Supervision of other normal 01/13/2012 09/25/2012 Overview: Boy on US- sammi Flu given 12/19/11 Supervision of normal first 12/28/2009 01/13/2012 Vaginal inclusion cyst 04/30/200901/12 Need for prophylactic vaccin ation with tetanus-diphtheria (Td) 06/19/2008 01/13/2012 Goiter, unspecified 01/15/2008 01/13/20 12 PARESTHESIAS RIGHT ARM 05/25/200501/12 Depressive disorder, not elsewhere classified 01/22/20 05 01/13/2012 Overview: 01/03/2012 Pt has a history of depression diagnosed in 2003. She has been off medication for since 2005. Discussed increased risks of depression during and and importance of reporting the development or worsening of symptoms should they occur. Pt denies ever having any suicidal thoughts or tendencies or thoughts of hurting others. Lumbago 01/21/2005 01/13/2012 documented as of this encounter (statuses as of 01/08/2023) [facility] Diagnosis Encounter for screening mammogram for malignant neoplasm of breast Other screening mammogram Family history of breast cancer Family history of malignant neoplasm of breast [facility] Diagnosis Encounter for IUD insertion- Primary Encounter for insertion of intrauterine contraceptive device Menorrhagia with regular cycle Excessive or frequent menstruation documented [facility] this [facility] Diagnosis Surveillance of previously prescribed intrauterine contraceptive device- Primary [facility] Diagnosis Annual physical exam- Primary Routine general medical examination at a health care facility Intractable headache, unspecified chronicity pattern, unspecified headache type 1.5.2 Status migrainosis [346.73] Chronic migraine without aura, with intractable migraine, so stated, with status migrainosus Screening for HIV (human immunodeficiency virus) Special screening examination for other specified viral diseases Special screening examination for viral disease Special screening examination for unspecified viral disease [facility] Diagnosis Migraine with aura and without status migrainosus, not intractable- Primary Migraine with aura, without mention of intractable migraine without mention of status migrainosus Vision changes Unspecified visual disturbance [facility] Diagnosis Herpes zoster with complication- Primary Herpes zoster with unspecified complication documented [facility] Diagnosis Sinobronchitis- Primary Unspecified sinusitis (chronic) documented [facility] Diagnosis Encounter for screening mammogram for malignant neoplasm of breast Other screening mammogram [facility] Diagnosis Encounter for screening mammogram for breast cancer- Primary documented in this encounter [facility] Diagnosis Visit for screening mammogram- Primary Other screening mammogram [facility] Diagnosis Encounter for screening mammogram for breast cancer documented [facility] this encounter [facility] Diagnosis GERD (gastroesophageal reflux disease)- Primary Esophageal reflux Irritable bowel Irritable bowel syndrome Headache Gastroesophageal reflux disease without esophagitis- Primary Esophageal reflux Dyslipidemia Other and unspecified hyperlipidemia Migraine with aura and without status migrainosus, not intractable Migraine with aura, without mention of intractable migraine without mention of status migrainosus Family history of diabetes mellitus in first degree relative Screening cholesterol level Screening for lipoid disorders Screening for deficiency anemia Screening for other and unspecified deficiency anemia Screening for diabetes mellitus Screening for metabolic disorder Screening for thyroid disorder Class 2 severe obesity with serious comorbidity and body mass index (BMI) of 36.0 to 36.9 in adult, unspecified obesity type (HCC) documented [facility] this encounter [facility] Diagnosis GERD (gastroesophageal reflux disease)- Primary Esophageal reflux Irritable bowel Irritable bowel syndrome Headache Flu-like symptoms- Primary Other general symptoms URI with cough and congestion Right ear pain Otalgia, unspecified Influenza A Influenza with other respiratory manifestations documented [facility] this [facility] Diagnosis GERD (gastroesophageal reflux disease)- Primary Esophageal reflux Irritable bowel Irritable bowel syndrome Headache Sinobronchitis- Primary Unspecified sinusitis (chronic) documented in this encounter [facility] Diagnosis GERD (gastroesophageal reflux disease)- Primary Esophageal reflux Irritable bowel Irritable bowel syndrome Headache Encounter for gynecological examination (general) (routine) without abnormal findings- Primary Encounter for screening mammogram for malignant neoplasm of breast Other screening mammogram Screening for cervical cancer Screening for malignant neoplasm of the cervix Encounter for screening for human papillomavirus (HPV) Special screening examination for human papillomavirus (HPV) Vaginal discharge Leukorrhea, not specified as infective Family history of breast cancer Family history of malignant neoplasm of breast At risk for breast cancer [facility] Diagnosis GERD (gastroesophageal reflux disease)- Primary Esophageal reflux Irritable bowel Irritable bowel syndrome Headache URI with cough and congestion- Primary Wheezing documented [facility] Diagnosis GERD (gastroesophageal reflux disease)- Primary Esophageal reflux Irritable bowel Irritable bowel syndrome Headache Family history of breast cancer- Primary Family history of malignant neoplasm of breast documented in this encounter [facility]* Diagnosis GERD (gastroesophageal reflux disease)- Primary Esophageal reflux Irritable bowel Irritable bowel syndrome Headache Dyslipidemia- Primary Other and unspecified hyperlipidemia Gastroesophageal reflux disease without esophagitis Esophageal reflux IFG (impaired fasting glucose) Impaired fasting glucose Migraine with aura and without status migrainosus, not intractable Migraine with aura, without mention of intractable migraine without mention of status migrainosus Class 2 severe obesity with serious comorbidity and body mass index (BMI) of 36.0 to 36.9 in adult, unspecified obesity type (HCC) documented in this encounter [facility] note* Diagnosis GERD (gastroesophageal reflux disease)- Primary Esophageal reflux Irritable bowel Irritable bowel syndrome Headache Encounter for gynecological examination (general) (routine) without abnormal findings documented in this encounter [facility] for referral (narrative)* Diagnostic Procedure Only (Routine) - Closed Specialty Diagnoses / Procedures Referred By Glenys le Referred To Contact [facility] Diagnoses Encounter for screening mammogram for malignant neoplasm of breast Family history of breast cancer Procedures RODY SCREENING SCREENING MAMMOGRAPHY BI 2-VIEW BREAST INC CAD Tonja Lerner MD [address] [place] [address] [facility] [address] [place] [phone] Referral ID Status Reason Start Date Expiration Date V isits Requested Visits Authorized [id number] Closed Auto-Generate d Referral 03/06/2021 03/05/2022 1 1 [facility] for referral (narrative)* Outpatient Procedure (Routine) - Pending Review Specialty Diagnoses / Procedures Referred By Glenys le Referred To [facility] Diagnoses Encounter for IUD insertion Procedures INSERT INTRAUTERINE DEVICE LEVONORGESTREL IU 52MG 5 YR INSERT INTRAUTERINE DEVICE Dede Garcia APRN.CLINICAL BIOCHEMICAL GENETICIST [address] [place] [address] [facility] [place] [address] [place] [address] Referral ID Status Reason Start Date Expiration Date Visits Requested Visits Authorized [id number] Pending Review Auto-Generat ed Referral 03/28/2022 03/28/2023 1 1 [facility] for [facility] (narrative)* Diagnostic Procedure Only (Routine) - Pending Review Specialty Diagnoses / Procedures Referred By Contac t Referred To Contact [facility] Diagnoses Encounter for screening mammogram for breast cancer Procedures RODY SCREENING SCREENING MAMMOGRAPHY BI 2-VIEW BREAST INC Shira Moran APRN.CNS [address] [place] [address] [facility] [address] [place] [address] Referral ID Status Reason Start Date Expiration Date Visits Requested Visits Authorized [id number] Pending Review Auto-Generat ed Referral 07/06/2023 08/04/2024 1 1 T [facility] for referral (narrative)* Diagnostic Procedure Only (Routine) - Pending Review Specialty Diagnoses / Procedures Referred By Glenys t Referred To Contact [facility] Diagnoses Visit for screening mammogram Procedures RODY SCREENING SCREENING MAMMOGRAPHY BI 2-VIEW BREAST INC Ana Maria Shaver MD [address] [place] [address] [facility] [address] [place] [address] Referral ID Status Reason Start Date Expiration Date Visits Requested Visits Authorized [id number] Pending Review Auto-Generat ed Referral 07/11/2023 07/27/2024 1 1 T [facility] for visit Narrative* Diagnostic Procedure Only (Routine) - Closed Specialty Diagnoses / Procedures Referred By Glenys t Referred To Contact [facility] Diagnoses Encounter for screening mammogram for malignant neoplasm of breast Family history of breast cancer Procedures RODY SCREENING SCREENING MAMMOGRAPHY BI 2-VIEW BREAST INC CAD Tonja Lerner MD [address] [place] [address] [facility] [address] [place] [address] Referral ID Status Reason Start Date Expiration Date V isits Requested Visits Authorized [id number] Closed Auto-Generate d Referral 03/06/2021 03/05/2022 1 1 [facility] for visit Narrative* Diagnostic Procedure Only (Routine) - Closed Specialty Diagnoses / Procedures Referred By Glenys le Referred To Contact [facility] Diagnoses Encounter for screening mammogram for breast cancer Procedures RODY SCREENING SCREENING MAMMOGRAPHY BI 2-VIEW BREAST INC CAD Shira Asencio, CONTROL MANAGER.[employer] [address] [place] [address] [facility] [address] [place] [address] Referral ID Status Reason Start Date Expiration Date V isits Requested Visits Authorized [id number] Closed Auto-Generate d Referral 07/06/2023 08/04/2024 1 1 [facility] for visit Narrative* Diagnostic Procedure Only (Routine) - Closed Specialty Diagnoses / Procedures Referred By Glenys le Referred To Contact [facility] Diagnoses Encounter for gynecological examination (general) (routine) without abnormal findings Procedures RODY SCREENING W ZAC SCREENING DIGITAL BREAST TOMOSYNTHESIS BI SCREENING MAMMOGRAPHY BI 2-VIEW BREAST INC CAD Estrada Ballard, CONTROL MANAGER.CLINICAL BIOCHEMICAL GENETICIST [address] [place] [address] Phone: tel: fax: [facility] [address] [place] [address] Referral ID Status Reason Start Date Expiration Date V isits Requested Visits Authorized [id number] Closed Auto-Generate d Referral 07/15/2024 03/05/2025 1 1 [facility] Summary Purpose Family History No Family History Records FoundNo Family History Records FoundNo Family History Records FoundNo Family History Records FoundNo Family History Records Found Advance Directives No Advanced Directives Records FoundNo Advanced Directives Records FoundNo Advanced Directives Records FoundNo Advanced Directives Records FoundNo Advanced Directives Records Found Medications Administered Section Inactive Administered Medications - up to 3 most recent administrations Medication Order MAR Action Action Date Dose Rate Site levonorgestrel 20 mcg/24 hours (8 yrs) 52 mg 1 Each intrauterine device (MIRENA) 1 Each, INTRAUTERINE, ONCE (UP TO 30 DAYS AMB), 1 dose, On 03/28/22 at 1430, Hazardous Potential Reproductive Risk Drug: Use appropriate PPE. Given 03/28/2022 2:33 PM EST 1 Each Other Reason for Referral Specialty Diagnoses / Procedures Referred By Glenys le Referred To Contact NEUROMUSCULAR Diagnoses Intractable headache, unspecified chronicity pattern, unspecified headache type Chronic migraine without aura, with intractable migraine, so stated, with status migrainosus Procedures CONSULT TO HEADACHE CLINIC OFFICE/OUTPATIENT [facility] AT [place] 60-74 MINUTES PHYS/QHP TELEPHONE EVALUATION 5-10 MIN AnaM aria Marrero MD [address] [place] [address] Neur Neuromusc Main [address] [place] [address] Referral ID Status Reason Start Date Expiration Date Visits Requested Visits Authorized [id number] Waiting for Response PCP Requested Referral 06/28/2022 06/28/2023 1 1 Specialty Diagnoses / Procedures Referred By Glenys le Referred To Contact Ophthalmology Diagnoses Vision changes Procedures CONSULT TO OPHTHALMOLOGY OFFICE/OUTPATIENT [facility] [place] 60-74 MINUTES Magdalena Walker APRN.CLINICAL BIOCHEMICAL GENETICIST [address] [place] [address] Referral ID Status Reason Start Date Expiration Date Visits Requested Visits Authorized [id number] Pending Review PCP Requested Referral 07/18/2022 07/18/2023 1 1 Specialty Diagnoses / Procedures Referred By Glenys le Referred To Contact [facility] Diagnoses Encounter for screening mammogram for malignant neoplasm of breast Procedures RODY SCREENING SCREENING MAMMOGRAPHY BI 2-VIEW BREAST INC CAD Dede Garcia, NARESH.CLINICAL BIOCHEMICAL GENETICIST [address] [place] [address] [facility] [address] [place] [address] Referral ID Status Reason Start Date Expiration Date Visits Re quested Visits Authorized [id number] Closed 07/12/2022 03/05/2023 1 1 Additional Source Comments INFORMATION SOURCE (unrecogn ized section and content) DATE CREATED AUTHOR 08/24/2017 [facility] DATE CREATED AUTHOR AUTHOR'S ORGANIZ ATION 02/27/2020 [facility] DATE CREATED AUTHOR AUTHOR'S ORGANIZ ATION 05/05/2020 [facility] DATE CREATED AUTHOR AUTHOR'S ORGANIZ ATION 06/17/2020 [facility] DATE CREATED AUTHOR AUTHOR'S ORGANIZ ATION 07/15/2024 [facility] Source Comments (unrecognize d section and content) In the event this informatio n is protected by the Federal Confidentiality of Alcohol and Drug Abuse Patient Records regulations: The Federal rules restrict any use of the information to criminally investigate or prosecute any alcohol or drug abuse patient.[facility] Hospital[facility] the event this information is protected by the Federal Confidentiality of Alcohol and Drug Abuse Patient Records regulations: The Federal rules restrict any use of the information to criminally investigate or prosecute any alcohol or drug abuse patient.[facility] Hospital[facility] the event this information is protected by the Federal Confidentiality of Alcohol and Drug Abuse Patient Records regulations: The Federal rules restrict any use of the information to criminally investigate or prosecute any alcohol or drug abuse patient.[facility] Hospital[facility] the event this information is protected by the Federal Confidentiality of Alcohol and Drug Abuse Patient Records regulations: The Federal rules restrict any use of the information to criminally investigate or prosecute any alcohol or drug abuse patient.[facility] Hospital[facility] the event this information is protected by the Federal Confidentiality of Alcohol and Drug Abuse Patient Records regulations: The Federal rules restrict any use of the information to criminally investigate or prosecute any alcohol or drug abuse patient.[facility] Hospital[facility] the event this information is protected by the Federal Confidentiality of Alcohol and Drug Abuse Patient Records regulations: The Federal rules restrict any use of the information to criminally investigate or prosecute any alcohol or drug abuse patient.[facility] HospitalIn the event this information is protected by the Federal Confidentiality of Alcohol and Drug Abuse Patient Records regulations: The Federal rules restrict any use of the information to criminally investigate or prosecute any alcohol or drug abuse patient.[facility] HospitalIn the event this information is protected by the Federal Confidentiality of Alcohol and Drug Abuse Patient Records regulations: The Federal rules restrict any use of the information to criminally investigate or prosecute any alcohol or drug abuse patient.[facility] HospitalIn the event this information is protected by the Federal Confidentiality of Alcohol and Drug Abuse Patient Records regulations: The Federal rules restrict any use of the information to criminally investigate or prosecute any alcohol or drug abuse patient.[facility] HospitalIn the event this information is protected by the Federal Confidentiality of Alcohol and Drug Abuse Patient Records regulations: The Federal rules restrict any use of the information to criminally investigate or prosecute any alcohol or drug abuse patient.[facility] HospitalIn the event this information is protected by the Federal Confidentiality of Alcohol and Drug Abuse Patient Records regulations: The Federal rules restrict any use of the information to criminally investigate or prosecute any alcohol or drug abuse patient.[facility] HospitalIn the event this information is protected by the Federal Confidentiality of Alcohol and Drug Abuse Patient Records regulations: The Federal rules restrict any use of the information to criminally investigate or prosecute any alcohol or drug abuse patient.[facility] HospitalIn the event this information is protected by the Federal Confidentiality of Alcohol and Drug Abuse Patient Records regulations: The Federal rules restrict any use of the information to criminally investigate or prosecute any alcohol or drug abuse patient.[facility] HospitalIn the event this information is protected by the Federal Confidentiality of Alcohol and Drug Abuse Patient Records regulations: The Federal rules restrict any use of the information to criminally investigate or prosecute any alcohol or drug abuse patient.[facility] HospitalIn the event this information is protected by the Federal Confidentiality of Alcohol and Drug Abuse Patient Records regulations: The Federal rules restrict any use of the information to criminally investigate or prosecute any alcohol or drug abuse patient.[facility] HospitalIn the event this information is protected by the Federal Confidentiality of Alcohol and Drug Abuse Patient Records regulations: The Federal rules restrict any use of the information to criminally investigate or prosecute any alcohol or drug abuse patient.[facility] HospitalIn the event this information is protected by the Federal Confidentiality of Alcohol and Drug Abuse Patient Records regulations: The Federal rules restrict any use of the information to criminally investigate or prosecute any alcohol or drug abuse patient.[facility] HospitalIn the event this information is protected by the Federal Confidentiality of Alcohol and Drug Abuse Patient Records regulations: The Federal rules restrict any use of the information to criminally investigate or prosecute any alcohol or drug abuse patient.[facility] HospitalIn the event this information is protected by the Federal Confidentiality of Alcohol and Drug Abuse Patient Records regulations: The Federal rules restrict any use of the information to criminally investigate or prosecute any alcohol or drug abuse patient.[facility] HospitalIn the event this information is protected by the Federal Confidentiality of Alcohol and Drug Abuse Patient Records regulations: The Federal rules restrict any use of the information to criminally investigate or prosecute any alcohol or drug abuse patient.[facility] HospitalIn the event this information is protected by the Federal Confidentiality of Alcohol and Drug Abuse Patient Records regulations: The Federal rules restrict any use of the information to criminally investigate or prosecute any alcohol or drug abuse patient.[facility] HospitalIn the event this information is protected by the Federal Confidentiality of Alcohol and Drug Abuse Patient Records regulations: The Federal rules restrict any use of the information to criminally investigate or prosecute any alcohol or drug abuse patient.[facility] HospitalIn the event this information is protected by the Federal Confidentiality of Alcohol and Drug Abuse Patient Records regulations: The Federal rules restrict any use of the information to criminally investigate or prosecute any alcohol or drug abuse patient.[facility] HospitalIn the event this information is protected by the Federal Confidentiality of Alcohol and Drug Abuse Patient Records regulations: The Federal rules restrict any use of the information to criminally investigate or prosecute any alcohol or drug abuse patient.[facility] HospitalIn the event this information is protected by the Federal Confidentiality of Alcohol and Drug Abuse Patient Records regulations: The Federal rules restrict any use of the information to criminally investigate or prosecute any alcohol or drug abuse patient.[facility] HospitalIn the event this information is protected by the Federal Confidentiality of Alcohol and Drug Abuse Patient Records regulations: The Federal rules restrict any use of the information to criminally investigate or prosecute any alcohol or drug abuse patient.[facility] HospitalIn the event this information is protected by the Federal Confidentiality of Alcohol and Drug Abuse Patient Records regulations: The Federal rules restrict any use of the information to criminally investigate or prosecute any alcohol or drug abuse patient.[facility] HospitalIn the event this information is protected by the Federal Confidentiality of Alcohol and Drug Abuse Patient Records regulations: The Federal rules restrict any use of the information to criminally investigate or prosecute any alcohol or drug abuse patient.[facility] HospitalIn the event this information is protected by the Federal Confidentiality of Alcohol and Drug Abuse Patient Records regulations: The Federal rules restrict any use of the information to criminally investigate or prosecute any alcohol or drug abuse patient.[facility] Care Teams (unrecognized sec tion and content) Golf Caddie Relationship Specialty Start Date End Date Ana Maria Marrero MD [address] [place] [address] PCP - General Internal Medicine 08/04/14 Golf Caddie Relationship Specialty Start Date End Date Ana Maria Marrero MD [address] [place] [address] PCP - General Internal Medicine 08/04/14 Golf Caddie Relationship Specialty Start Date End Date Ana Maria Marrero MD [address] [facility] [address] PCP - General Internal Medicine 08/04/14 Golf Caddie Relationship Specialty Start Date End Date Ana Maria Marrero MD [address] [facility] [address] PCP - General Internal Medicine 08/04/14 Golf Caddie Relationship Specialty Start Date End Date Ana Maria Marrero MD [address] [place] [address] PCP - General Internal Medicine 08/04/14 Golf Caddie Relationship Specialty Start Date End Date Ana Maria Marrero MD [address] [place] [address] PCP - General Internal Medicine 08/04/14 Golf Caddie Relationship Specialty Start Date End Date Ana Maria Marrero MD [address] [place] [address] PCP - General Internal Medicine 08/04/14 Golf Caddie Relationship Specialty Start Date End Date Ana Maria Marrero MD [address] [place] [address] PCP - General Internal Medicine 08/04/14 Golf Caddie Relationship Specialty Start Date End Date Ana Maria Marrero MD [address] [place] [address] PCP - General Internal Medicine 08/04/14 Golf Caddie Relationship Specialty Start Date End Date Ana Maria Marrero MD [address] [place] [address] PCP - General Internal Medicine 08/04/14 Golf Caddie Relationship Specialty Start Date End Date Ana Maria Marrero MD [address] [place] [address] PCP - General Internal Medicine 08/04/14 Golf Caddie Relationship Specialty Start Date End Date Ana Maria Marrero MD [address] [place] [address] PCP - General Internal Medicine 08/04/14 Golf Caddie Relationship Specialty Start Date End Date Ana Maria Marrero MD [address] [place] [address] PCP - General Internal Medicine 08/04/14 Golf Caddie Relationship Specialty Start Date End Date Ana Maria Marrero MD [address] [place] [address] PCP - General Internal Medicine 08/04/14 Golf Caddie Relationship Specialty Start Date End Date Ana Maria Marrero MD [address] [place] [address] PCP - General Internal Medicine 08/04/14 Golf Caddie Relationship Specialty Start Date End Date Ana Maria Marrero MD [address] [place] [address] PCP - General Internal Medicine 08/04/14 Golf Caddie Relationship Specialty Start Date End Date Ana Maria Marrero MD [address] [place] [address] PCP - General Internal Medicine 08/04/14 Golf Caddie Relationship Specialty Start Date End Date Ana Maria Marrero MD [address] [place] [address] PCP - General Internal Medicine 08/04/14 Golf Caddie Relationship Specialty Start Date End Date Ana Maria Marrero MD [address] [place] [address] PCP - General Internal Medicine 08/04/14 Miriam Colvin PA-C [address] [place] [address] [phone] Funeral Pre Need Consultant Family Medicine 02/11/24 Mandi Copeland APRN.CLINICAL BIOCHEMICAL GENETICIST [address] [place] [address] Funeral Pre Need Consultant Internal Medicine 02/11/24 Kera Champagne PA-C [address] [place] [address] Funeral Pre Need Consultant Family Medicine 02/11/24 Golf Caddie Relationship Specialty Start Date End Date Ana Maria Marrero MD [address] [place] [address] PCP - General Internal Medicine 08/04/14 Miriam Colvin PA-C [address] [place] [address] Funeral Pre Need Consultant Family Medicine 02/11/24 Mandi Copeland, CONTROL MANAGER.CLINICAL BIOCHEMICAL GENETICIST [address] [place] [address] Funeral Pre Need Consultant Internal Medicine 02/11/24 Kera Champagne PA-C [address] [place] [address] Funeral Pre Need Consultant Family Medicine 02/11/24 Golf Caddie Relationship Specialty Start Date End Date Ana Maria Marrero MD [address] [place] [address] PCP - General Internal Medicine 08/04/14 Miriam Colvin PA-C [address] [place] [address] Funeral Pre Need Consultant Family Medicine 02/11/24 Mandi Copeland APRN.CLINICAL BIOCHEMICAL GENETICIST [address] [facility] [place] [address] Funeral Pre Need Consultant Internal Medicine 02/11/24 Kera Champagne PA-C [address] [place] [address] Funeral Pre Need Consultant Family Medicine 02/11/24 Golf Caddie Relationship Specialty Start Date End Date Ana Maria Marrero MD [address] [place] [address] PCP - General Internal Medicine 08/04/14 Miriam Colvin PA-C [address] [place] [address] Funeral Pre Need Consultant Family Medicine 02/11/24 Mandi Copeland, NARESH.CLINICAL BIOCHEMICAL GENETICIST [address] [facility] [place] [address] Funeral Pre Need Consultant Internal Medicine 02/11/24 Kera Champagne PA-C [address] [place] [address] Funeral Pre Need Consultant Family Medicine 02/11/24 Golf Caddie Relationship Specialty Start Date End Date Ana Maria Marrero MD [address] [facility] [place] [address] PCP - General Internal Medicine 08/04/14 Miriam Colvin PA-C [address] [place] [address] Funeral Pre Need Consultant Family Medicine 02/11/24 Mandi Copeland APRN.CLINICAL BIOCHEMICAL GENETICIST [address] [place] [address] Funeral Pre Need Consultant Internal Medicine 02/11/24 Kera Champagne PA-C [address] [place] [address] Funeral Pre Need Consultant Family Medicine 02/11/24 Golf Caddie Relationship Specialty Start Date End Date Ana Maria Marrero MD [address] [place] [address] PCP - General Internal Medicine 08/04/14 Miriam Colvin PA-C [address] [place] [address] Funeral Pre Need Consultant Family Medicine 02/11/24 Mandi Copeland APRN.CLINICAL BIOCHEMICAL GENETICIST [address] [place] [address] Funeral Pre Need Consultant Internal Medicine 02/11/24 Kera Champagne PA-C [address] [place] [address] Funeral Pre Need Consultant Family Medicine 02/11/24 Golf Caddie Relationship Specialty Start Date End Date Ana Maria Marrero MD [address] [place] [address] PCP - General Internal Medicine 08/04/14 Miriam Colvin PA-C [address] [place] [address] Funeral Pre Need Consultant Family Medicine 02/11/24 Mandi Copeland APRN.CLINICAL BIOCHEMICAL GENETICIST [address] [facility] [place] [address] Funeral Pre Need Consultant Internal Medicine 02/11/24 Kera Champagne PA-C [address] [place] [address] Funeral Pre Need Consultant Family Medicine 02/11/24 Golf Caddie Relationship Specialty Start Date End Date Ana Maria Marrero MD [address] [place] [address] PCP - General Internal Medicine 08/04/14 Miriam Colvin PA-C [address] [place] [address] Funeral Pre Need Consultant Family Medicine 02/11/24 05/26/24 Mandi Copeland APRN.CLINICAL BIOCHEMICAL GENETICIST [address] [facility] [place] [address] Funeral Pre Need Consultant Internal Medicine 02/11/24 Kera Champagne PA-C [address] [place] [address] Funeral Pre Need Consultant Family Medicine 02/11/24 05/26/24 Golf Caddie Relationship Specialty Start Date End Date Ana Maria Marrero MD [address] [place] [address] PCP - General Internal Medicine 08/04/14 Mandi Copeland APRN.CLINICAL BIOCHEMICAL GENETICIST [address] [place] [address] Funeral Pre Need Consultant Internal Medicine 02/11/24 Golf Caddie Relationship Specialty Start Date End Date Ana Maria Marrero MD [address] [place] [address] PCP - General Internal Medicine 08/04/14 Mandi Copeland APRN.CLINICAL BIOCHEMICAL GENETICIST [address] [place] [address] Funeral Pre Need Consultant Internal Medicine 02/11/24 Reason for Visit (unrecogniz ed section and content) Reason Onset Date Comments Insertion Of IUD 03/28/2022 Specialty Diagnoses / Procedures Referred By Contac t Referred To Contact [facility] Diagnoses Menorrhagia with regular cycle Procedures INSERT INTRAUTERINE DEVICE LEVONORGESTREL IU 52MG 5 YR INSERT INTRAUTERINE DEVICE REMOVE INTRAUTERINE DEVICE Tonja Lerner MD [address] [place] [address] [facility] [place] [address] [place] [address] Referral ID Status Reason Start Date Expiration Date Visits Requested Visits Authorized [id number] Authorized Auto-Generat ed Referral 03/22/2022 03/05/2023 1 2 Reason Comments IUD Specialty Diagnoses / Procedures Referred By Contac t Referred To Contact Gynecology / [facility] Diagnoses IUD check up IUD check Procedures OFFICE/OUTPATIENT ESTABLISHED HIGH MDM 40-54 MIN EST I PATIENT Dede Garcia, NARESH.CLINICAL BIOCHEMICAL GENETICIST [address] [facility] [place] [address] Dede Garcia APRN.CLINICAL BIOCHEMICAL GENETICIST [address] [facility] [place] [address] Referral ID Status Reason Start Date Expiration Date Visits Re quested Visits Authorized [id number] Closed 03/28/2022 03/05/2023 1 1 Reason Comments Physical wants a migraine med to prevent them Specialty Diagnoses / Procedures Referred By Contac t Referred To Contact Internal Medicine / [facility]NAL [facility]IC[facility] Diagnoses Migraine medication Procedures OFFICE/OUTPATIENT ESTABLISHED MOD MDM 30-39 MIN MYC PHYSICAL Ana Maria Marrero MD [address] [place] [address] Ana Maria Marrero MD [address] [place] [address] Referral ID Status Reason Start Date Expiration Date Visits Re quested Visits Authorized [id number] Closed 06/28/2022 03/05/2023 1 1 Reason Comments New Patient Specialty Diagnoses / Procedures Referred By Contac t Referred To Contact NEUROMUSCULAR Diagnoses Intractable headache, unspecified chronicity pattern, unspecified headache type Chronic migraine without aura, with intractable migraine, so stated, with status migrainosus Procedures CONSULT TO HEADACHE CLINIC OFFICE/OUTPATIENT NEW HIGH MDM 60-74 MINUTES PHYS/QHP TELEPHONE EVALUATION 5-10 MIN Ana Maria Marrero MD [address] [place] [address] Neur Neuromusc Main [address] [place] [address] Referral ID Status Reason Start Date Expiration Date Visits Requested Visits Authorized [id number] Authorized PCP Requested Referral 06/28/2022 06/29/2023 20 20 Reason Comments Rash right side bottom of shoulder blade area x monday Specialty Diagnoses / Procedures Referred By [place] t Referred To Contact Internal Medicine / [facility] Diagnoses Herpes zoster with complication possible shingles right side of back Procedures OFFICE/OUTPATIENT ESTABLISHED MOD MDM 30-39 MIN EST SAME DAY Self [facility] [address] [place] [address] Referral ID Status Reason Start Date Expiration Date Visits Re quested Visits Authorized [id number] Closed 09/22/2022 03/05/2023 1 1 Reason Comments Nasal Congestion Cough, headache, ear pain L ear, sore throat x 1 week Specialty Diagnoses / Procedures Referred By Contac t Referred To Contact [facility] Diagnoses Encounter for screening mammogram for malignant neoplasm of breast Procedures RODY SCREENING SCREENING MAMMOGRAPHY BI 2-VIEW BREAST INC Dede Dykes, CONTROL MANAGER.CLINICAL BIOCHEMICAL GENETICIST [address] [place] [address] [facility] [address] [place] [address] Referral ID Status Reason Start Date Expiration Date Visits Re quested Visits Authorized [id number] Closed 07/12/2022 03/05/2023 1 1 Reason Comments Orders Reason Onset Date Comments Weight Management 01/23/2024 Reason Comments Cough Chest congestion, ch est burning x 2 days Ear Pain R ear pain x today Reason Comments Recheck Influenza A follow u p, cough continues Reason Comments Well Woman Reason Comments Chest Congestion cough x 3 days Reason Comments Weight Management Specialty Diagnoses / Procedures Referred By Contac t Referred To Contact Gynecology / [facility] Diagnoses Follow-up examination wt mgmt f/u Procedures OFFICE/OUTPATIENT ESTABLISHED HIGH MDM 40 MIN OFFICE/OUTPATIENT EST PT MAY NOT REQ PHYS/QHP EST WHI PATIENT [facility] [address] [place] [address] Phone: tel: [place] CONTROL MANAGER.CLINICAL BIOCHEMICAL GENETICIST [address] [place] [address] Phone: tel: fax: Referral ID Status Reason Start Date Expiration Date V isits Requested Visits Authorized [id number] Authorized 05/22/2024 03/05/2025 99 99 Reason Comments Heavy Bleeding FOR RECORDS PERTAINING TO PATIENTS WHO ARE OR HAVE BEEN ENROLLED IN A CHEMICAL DEPENDENCY/SUBSTANCEABUSE PROGRAM, SOME INFORMATION MAY BE OMITTED. This clinical summary was aggregated from multiple sources. Caution should be exercised in using it in the provision of clinical care. This summary normalizes information from multiple sources, and as a consequence, information in this document may materially change the coding, format and clinical context of patient data. In addition, data may be omitted in some cases. CLINICAL DECISIONS SHOULD BE BASED ON THE PRIMARY CLINICAL RECORDS. [employer] provides no warranty or guarantee of the accuracy or completeness of information in this document.
[2024-08-17 11:23] LABS: Absolute Neutrophil Count 4.4 X10^3/uL (2.0-7.7); Basophil# 0.04 X10^3/uL; Basophil% 0.5 % (0-1); Eosinophil# 0.08 X10^3/uL; Hematocrit 40.4 % (37-47); Hemoglobin 13.9 g/dL (12.0-15.0); Lymphocyte % 36.8 % (19-41); Mean Corp Hgb Conc 34.4 g/dL (32-36); Mean Corpuscular Hgb 29.2 pg (27.0-32.0); Mean Corpuscular Volume 84.9 fL (81-99); Mean Platelet Vol. 9.4 fl (6.2-12.0); Monocyte# 0.48 X10^3/uL; Monocyte% 6.1 % (0-10); NRBC Flagged by Analyzer 0 % (0-5); Neutrophil # 4.36 X10^3/uL (2.7-7.7); Neutrophil % 55.2 % (47-70); Platelet Count 301 K/mm3 (150-450); RBC Distribution Width CV 12.1 % (11.6-14.6); RBC Distribution Width SD 36.9 fl (35.1-43.9); Red Blood Count 4.76 M/mm3 (4.2-5.4); White Blood Count 7.9 K/mm3 (4.4-11.0)
[2024-08-17 11:34] VITALS: BP 102/74; PULSE 55; O2SAT 93
[2024-08-17 11:39] LABS: Internal QC Validated? YES +Cl - CLEAR BKGD; Pregnancy, Serum, hCG Quali. NEGATIVE Negative
[2024-08-17 12:01] LABS: Anion Gap 12 (5-15); BUN 12 mg/dL (4-19); Carbon Dioxide 18.2 mmol/L (21.0-32.0); Chloride 107 mmol/L (98-108); Creatinine, Serum 0.67 mg/dL (0.70-1.20); EST Glomerular Filtration Rate 114 (>60); Glucose 96 mg/dL (70-99); Potassium 3.9 mmol/L (3.3-5.1); Sodium Level 138 mmol/L (133-145)
[2024-08-17] MEDS: 0.9% Normal Saline (1000mL) 1,000 ML 1000 ML IV (12:12)
[2024-08-17 12:59] VITALS: BP 111/71; PULSE 51; O2SAT 100
[2024-08-17 13:24] VITALS: BP 116/69; PULSE 57; RESP 16; TEMP 36.3; O2SAT 97
== END 2024-08-17 13:26 | disposition home or self-care (01) ==
PROVIDERS: Emergency Provider Emergency Medicine; PCP Internal Medicine; Visit Provider Emergency Medicine
DX: N93.9 Abnormal uterine and vaginal bleeding, unspecified (principal); N92.0 Excessive and frequent menstruation with regular cycle; E86.9 Volume depletion, unspecified; Z97.5 Presence of (intrauterine) contraceptive device
CPT/HCPCS: 80048; 84703; 85025; 96360; 99283; A4216